=== PATIENT | male | born 1965 | race Two or more races ===

== ENCOUNTER 2019-10-27 18:22 | Inpatient (IN) ==
[2019-10-27 18:42] VITALS: BMI 23.6
[2019-10-27] MEDS ORDERED: NS 1000 ML 1,000 ML IV ONE (19:40)
[2019-10-27] MEDS ORDERED: ZOFRAN INJ 4 MG VIAL IVP ONE (19:40)
--- NOTE | 2019-10-27 19:40 | DR.GENAD ---
HPI Time Seen Time Seen by Provider: 10/27/19 19:36 PCP Primary Care Physician: DR. KAYLIN PATRICK HPI Comment HPI Comment: Interview in Slovak: 4 days fever, malaise, back pain, mild non- productive cough, denies SHOB. O2Sat 90% on 2L NC. Also c/o nausea and appetite loss, no vomiting/diarrhea/constipation or dysuria. Complaint/Symptoms Chief Complaint:: PT AMBULATORY IN ED WITH C/O FEVER, CHILLS AND BODY ACHES X 4 DAYS. COVID-19 Coronavirus risk:travel/contact w/high risk person: No Has patient experienced Coronavirus symptoms: Yes Coronavirus symptoms experienced: Fever, Coughing and Shortness of Breath Source History Provided: Patient Mode of Arrival Mode of Arrival: Ambulatory Timing Onset of Chief Complaint: 10/23/19 PMH PMH Past Medical History: Yes Past Medical History: Diabetes Past Surgical History: No Surgical History: No History Family History History of Family Medical Conditions: Yes Family Medical History: Diabetes Mellitus Social History Does patient currently use any type of tobacco product: No Have you used tobacco products in the last 12 months: No Type of Tobacco Use: None Does any household member use tobacco: No Alcohol Use: Occasionally Do you use any recreational Drugs:: No Lives With: Significant Other Lives Where: Home Travel Risk Coronavirus risk:travel/contact w/high risk person: No Has patient experienced Coronavirus symptoms: Yes Coronavirus symptoms experienced: Fever, Coughing and Shortness of Breath Infectious screening In the last 2 months have you had wt loss of >10#?: NO Have you had fever, night sweats or hemotysis?: Yes Have you traveled outside the country in the last 6 months?: No Isolation: Droplet ROS Review of Systems Constitutional: See HPI Eyes: No Symptoms Reported ENTM: No Symptoms Reported Respiratoy: See HPI Cardiovascular: No Symptoms Reported Gastrointestinal/Abdominal: See HPI Genitourinary: No Symptoms Reported Neurological: No Symptoms Reported Musculoskeletal: No Symptoms Reported Integumentary: No Symptoms Reported Hematologic/Lymphatic: No Symptoms Reported Endocrine: No Symptoms Reported Psychiatric: No Symptoms Reported All Other Systems: Reviewed and Negative PE Vital Signs Vitals: Temperature 101 F Pulse Rate [Left] 97 Pulse Rate 90 Respiratory Rate 28 Blood Pressure [Right Arm] 108/68 Blood Pressure 122/69 O2 Sat by Pulse Oximetry 87 General Limitations: No Limitations General Appearance: Alert and In No Apparent Distress Head Head Exam: Normal Inspection Eyes Eye exam: Normal Appearance ENT ENT Exam: Mucous Membranes Dry External Ear Exam: Normal External Inspection TM/Canal Exam: Bilateral: Normal Nose Exam: Normal Nose Exam Mouth Exam: Normal Inspection Throat Exam: Normal Inspection Neck Neck Exam: Normal Inspection Chest Chest Inspection: Normal Inspection Respiratory Respiratory Exam: Normal Lung Sounds Bilat Respiratory Exam: Bilateral: Clear to Auscultation Cardiovascular Cardiovascular Exam: Regular Rate and Normal Rhythm Abdominal Exam Abdominal Exam: Normal Inspection, Normal Bowel Sounds, Soft and Tenderness (Epigastric); negative Distention, Guarding, Rebound and Rigidity Extremities Extremities Exam: Normal Inspection and Full ROM Back Back Exam: Normal Inspection Neurologic Neurological Exam: Alert and Oriented X3 Psychiatric Psychiatric Exam: Normal Affect and Normal Mood Skin Skin Exam: Warm, Dry, Intact and Normal Color COURSE Treatment Treatment: Symptoms concerning for viral infection, potentially Covid, cannot r/o bacterial pneumonia or other etiology. Currently stable O2 Sats on 2L/min. Patient endorsed to Dr. Paulino for follow up of labs, further management, and disposition. ROR Labs Reviewed Result Diagrams: 10/31/19 04:33 10/31/19 04:33 Laboratory: WBC 15.9 X10^3/uL (3.6-10.0) H 10/27/19 19:53 RBC 4.07 X10^6/uL (4.7-6.0) L 10/27/19 19:53 Hgb 11.6 g/dL (13.5-18.0) L 10/27/19 19:53 Hct 34.3 % (42.0-54.0) L 10/27/19 19:53 MCV 84.3 fL (80.0-100.0) 10/27/19 19:53 MCH 28.6 pg (27.0-34.0) 10/27/19 19:53 MCHC 33.9 g/dL (33.0-35.0) 10/27/19 19:53 RDW 13.6 % (11.6-16.5) 10/27/19 19:53 Plt Count 290 X10^3/uL (150.0-450.0) 10/27/19 19:53 Plt Count Comment Adequate (ADEQUATE) 10/27/19 19:53 MPV 7.4 fL (7.4-11.0) 10/27/19 19:53 Neut % (Auto) 92.4 % (42.0-75.0) H 10/27/19 19:53 Lymph % (Auto) 3.7 % (21.0-51.0) L 10/27/19 19:53 [place] % (Auto) 3.8 % (0.0-13.0) 10/27/19 19:53 Eos % (Auto) 0.0 % (0.9-2.9) L 10/27/19 19:53 Baso % (Auto) 0.1 % (0.2-1.0) L 10/27/19 19:53 Neut # (Auto) 14.7 x10^3/uL (2.2-4.8) H 10/27/19 19:53 Lymph # (Auto) 0.6 X10^3/uL (1.3-2.9) L 10/27/19 19:53 [place] # (Auto) 0.6 x10^3/uL (0.3-0.8) 10/27/19 19:53 Eos # (Auto) 0.0 x10^3/uL (0.0-0.2) 10/27/19 19:53 Baso # (Auto) 0.0 X10^3/uL (0.0-0.1) 10/27/19 19:53 Absolute Nucleated RBC 0.0 /100WBC 10/27/19 19:53 Total Counted 100 10/27/19 19:53 Neutrophils % (Manual) 92 % (39-76) H 10/27/19 19:53 Band Neutrophils % 1 % (0-10) 10/27/19 19:53 Lymphocytes % (Manual) 4 % (13-43) L 10/27/19 19:53 Monocytes % (Manual) 3 % (4-9) L 10/27/19 19:53 Plt Morphology Comment Normal (NORMAL) 10/27/19 19:53 RBC Morphology Normal (NORMAL) 10/27/19 19:53 Sample Site [facility] 10/27/19 21:23 ABG pH 7.470 (7.35-7.45) H 10/27/19 21:23 ABG pCO2 35.0 mmHg (35.0-45.0) 06/05/20 21:23 ABG pO2 61.0 mmHg (80.0-100.0) L 10/27/19 21:23 ABG HCO3 25.5 mmol/L (22-26) 10/27/19 21:23 ABG O2 Saturation 93.0 % (90-100) 10/27/19 21:23 ABG Base Excess 2.0 mmol/L (-2.0-2.0) 10/27/19 21:23 Titi Test Na 10/27/19 21:23 A-a Gradient 180.0 mmHg 10/27/19 21:23 FiO2 40.0 10/27/19 21:23 Blood Gas Comments Flakita abg well-mtf 10/27/19 21:23 Sodium 126 mmol/L (136-145) L 10/27/19 19:53 Corrected Sodium 130 mmol/L (136-145) L 10/27/19 19:53 Potassium 4.1 mmol/L (3.5-5.1) 10/27/19 19:53 Chloride 92 mmol/L (98-107) L 10/27/19 19:53 Carbon Dioxide 26.9 mmol/L (21-32) 10/27/19 19:53 BUN 13 mg/dL (7-18) 10/27/19 19:53 Creatinine 1.05 mg/dL (0.70-1.30) 10/27/19 19:53 Est GFR (MDRD) Af Amer > 60 (>60) 10/27/19 19:53 Est GFR (MDRD) Non-Af > 60 (>60) 10/27/19 19:53 Glucose 283 mg/dL (65-99) H 10/27/19 19:53 Calcium 8.6 mg/dL (8.5-10.1) 10/27/19 19:53 Corrected Calcium 9.9 mg/dL (8.5-10.1) 10/27/19 19:53 Total Bilirubin 0.40 mg/dL (0.2-1.0) 10/27/19 19:53 AST 31 Units/L (15-37) 10/27/19 19:53 ALT 23 Units/L (12-78) 10/27/19 19:53 Alkaline Phosphatase 118 Units/L (46-116) H 10/27/19 19:53 Total Protein 7.7 g/dL (6.4-8.2) 10/27/19 19:53 Albumin 2.4 g/dL (3.4-5.0) L 10/27/19 19:53 Globulin 5.3 g/dL (2.5-4.5) H 10/27/19 19:53 Albumin/Globulin Ratio 0.5 Ratio (1.1-2.1) L 10/27/19 19:53 Influenza Type A Ag Negative-presumptive (NEGATIVE) 10/27/19 20:23 Influenza Type B Ag Negative-presumptive (NEGATIVE) 10/27/19 20:23 Mycoplasma pneumon IgG Negative (NEGATIVE) 10/27/19 19:53 SARS-CoV-2 (PCR) Positive (NEGATIVE) A 10/27/19 22:45 Miscellaneous Test Cancelled 10/27/19 19:05 EKG [place]: Normal Rhythm: NSR Block: None Hypertrophy: None ST: Normal Opioid Opioid Risk Tool Age ([place] box if 16-45): No History of Preadolescent Sexual Abuse: No Total: 0 Total Score Risk Category: Low Risk Copyright: Cooper MEADE predicting aberrant behaviors Diagnosis Discharge Problem: Multifocal pneumonia, COVID-19 virus IgG antibody test result unknown, Type 2 diabetes mellitus, Hyponatremia Instructions Forms: Excuse From Work Precautions for COVID19 Patient Portal Social Distancing
[2019-10-27 20:02] LABS: BASOPHILS % (AUTO) 0.1 % (0.2-1.0); HEMATOCRIT 34.3 % (42.0-54.0); HEMOGLOBIN 11.6 g/dL (13.5-18.0); LYMPHOCYTES # (AUTO) 0.6 X10^3/uL (1.3-2.9); LYMPHOCYTES % (AUTO) 3.7 % (21.0-51.0); MEAN CORPUSCULAR HEMOGLOBIN 28.6 pg (27.0-34.0); MEAN CORPUSCULAR HGB CONC 33.9 g/dL (33.0-35.0); MEAN CORPUSCULAR VOLUME 84.3 fL (80.0-100.0); MEAN PLATELET VOLUME 7.4 fL (7.4-11.0); MONOCYTES # (AUTO) 0.6 x10^3/uL (0.3-0.8); MONOCYTES % (AUTO) 3.8 % (0.0-13.0); NEUTROPHILS # (AUTO) 14.7 x10^3/uL (2.2-4.8); NEUTROPHILS % (AUTO) 92.4 % (42.0-75.0); PLATELET COUNT 290 X10^3/uL (150.0-450.0); RED BLOOD COUNT 4.07 X10^6/uL (4.7-6.0); RED CELL DISTRIBUTION WIDTH 13.6 % (11.6-16.5); WHITE BLOOD COUNT 15.9 X10^3/uL (3.6-10.0)
[2019-10-27] MEDS ORDERED: NS 1000 ML 1,000 ML ONE ×2 (20:09→22:07)
[2019-10-27] MEDS ORDERED: ZOFRAN INJ 4 MG VIAL ONE (20:09)
[2019-10-27 20:12] LABS: BAND NEUTROPHILS % 1 % (0-10); PLATELET MORPHOLOGY COMMENT NORMAL (NORMAL)
[2019-10-27 20:13] LABS: ALANINE AMINOTRANSFERASE 23 Units/L (12-78); ALBUMIN 2.4 g/dL (3.4-5.0); ALKALINE PHOSPHATASE 118 Units/L (46-116); ASPARTATE AMINO TRANSFERASE 31 Units/L (15-37); BLOOD UREA NITROGEN 13 mg/dL (7-18); CALCIUM 8.6 mg/dL (8.5-10.1); CARBON DIOXIDE 26.9 mmol/L (21-32); CHLORIDE 92 mmol/L (98-107); COR CA(FOR HYPOALB) 9.9 mg/dL (8.5-10.1); COR NA(FOR HYPERGLY) 130 mmol/L (136-145); CREATININE 1.05 mg/dL (0.70-1.30); SODIUM 126 mmol/L (136-145); TOTAL PROTEIN 7.7 g/dL (6.4-8.2); eGFR NON BLACK RACES > 60 (>60)
--- NOTE | 2019-10-27 20:24 | RAD ---
STUDY: CHEST, 1 VIEWCOMPARISON: NoneHISTORY: C/O FEVER, CHILLS AND BODY ACHES X 4 DAYS.FINDINGS:Multifocal alveolar airspace disease is seen in the left mid and left lower lung zone as well as the right lower lung zone. No pleural effusion or pneumothorax is identified. Heart size is normal. Mediastinum is unremarkable. The trachea is midline.IMPRESSION:Multifocal alveolar airspace disease is seen in the left and right lung as described above. Given the patient's history of fever and chills, this could represent acute airspace disease such as infection/multifocal lobar pneumonia or viral pneumonia. Please note that there are no prior studies available for comparison. Therefore I would consider chronic airspace disease in the differential diagnosis. Correlation with laboratory viral testing may be helpful and obtained if clinically indicated.Electronically signed by: Maximiliano Arriaza (Oct 27, 2019 20:22:58)
[2019-10-27 20:31] LABS: MYCOPLASMA PNEUMONIAE IGM AB NEGATIVE (NEGATIVE)
[2019-10-27 21:28] LABS: ABG HCO3 25.5 mmol/L (22-26)
[2019-10-27] MEDS ORDERED: ROCEPHIN VIAL 1 GRAM 1 G in NS 100 ML IV + SPIKE MINIBAG* 100 ML IV ONE (21:53)
[2019-10-27] MEDS ORDERED: NS 100 ML IV + SPIKE MINIBAG* 100 ML IV ONE (22:07)
[2019-10-27] MEDS ORDERED: ROCEPHIN VIAL 1 GRAM ONE (22:08)
[2019-10-27] MEDS: NS 1000 ML 1,000 ML IV SCH (22:19)
[2019-10-27] MEDS ORDERED: TYLENOL 325 MG TAB PO ONE ×2 (22:26→22:27)
[2019-10-27] MEDS ORDERED: VITAMIN D (1.25MG) PO SCH (23:15)
[2019-10-27] MEDS ORDERED: THIAMINE HCL INJ IM SCH (23:45)
[2019-10-27] MEDS ORDERED: NS 1000 ML 1,000 ML IV SCH (23:45)
[2019-10-28] MEDS: ASCORBIC ACID INJ MULTI-DOSE VIAL IM SCH ×2 (02:29→05:03)
[2019-10-28] MEDS: PLAQUENIL PO SCH ×2 (02:31→05:03)
[2019-10-28] MEDS: ZINC SULFATE PO SCH ×2 (02:31→08:55)
[2019-10-28] MEDS: NS 1000 ML 1,000 ML IV SCH ×3 (05:03→21:00)
[2019-10-28 05:33] LABS: BASOPHILS % (AUTO) 0.1 % (0.2-1.0); EOSINOPHILS % (AUTO) 0.1 % (0.9-2.9); HEMATOCRIT 35.1 % (42.0-54.0); HEMOGLOBIN 11.8 g/dL (13.5-18.0); LYMPHOCYTES % (AUTO) 5.6 % (21.0-51.0); MEAN CORPUSCULAR HEMOGLOBIN 28.7 pg (27.0-34.0); MEAN CORPUSCULAR HGB CONC 33.7 g/dL (33.0-35.0); MEAN CORPUSCULAR VOLUME 85.3 fL (80.0-100.0); MEAN PLATELET VOLUME 8.8 fL (7.4-11.0); MONOCYTES # (AUTO) 0.6 x10^3/uL (0.3-0.8); MONOCYTES % (AUTO) 3.2 % (0.0-13.0); PLATELET COUNT 290 X10^3/uL (150.0-450.0); RED BLOOD COUNT 4.11 X10^6/uL (4.7-6.0); RED CELL DISTRIBUTION WIDTH 13.6 % (11.6-16.5); WHITE BLOOD COUNT 18.7 X10^3/uL (3.6-10.0)
[2019-10-28 05:45] LABS: ALANINE AMINOTRANSFERASE 42 Units/L (12-78); ALBUMIN 2.1 g/dL (3.4-5.0); ALKALINE PHOSPHATASE 120 Units/L (46-116); ASPARTATE AMINO TRANSFERASE 76 Units/L (15-37); BLOOD UREA NITROGEN 10 mg/dL (7-18); CALCIUM 8.1 mg/dL (8.5-10.1); CARBON DIOXIDE 24.4 mmol/L (21-32); CHLORIDE 98 mmol/L (98-107); COR CA(FOR HYPOALB) 9.6 mg/dL (8.5-10.1); COR NA(FOR HYPERGLY) 131 mmol/L (136-145); CREATININE 0.86 mg/dL (0.70-1.30); SODIUM 130 mmol/L (136-145); TOTAL PROTEIN 7.4 g/dL (6.4-8.2); eGFR NON BLACK RACES > 60 (>60)
[2019-10-28] MEDS: TYLENOL 325 MG TAB PO PRN ×2 (05:51→17:49)
[2019-10-28 06:23] LABS: BAND NEUTROPHILS % 3 % (0-10)
[2019-10-28 06:24] LABS: PLATELET MORPHOLOGY COMMENT NORMAL (NORMAL)
[2019-10-28] MEDS ORDERED: VITAMIN A PO SCH (09:00)
--- NOTE | 2019-10-28 10:27 | DR.H&P ---
H&P History & Physical for Day of: H&P Date: 10/28/19 Chief Complaint Chief Complaint: Fevers, chills, shortness of breath Allergies Allergies Allergy/AdvReac Type Severity Reaction Status Date / Time No Known Drug Allergies Allergy Verified 10/27/19 18:43 History of Present Illness History of Present Illness: Pt is a 53 yo m pmhx DMT2, admitted for COVID pneumonia(positive on 10/27/19) and acute respiratory failure. He reports having fevers, chills, and shortness of breath that started 4 days ago. Associated symptoms of nausea/vomiting, body aches. Initial labs/imaging: Wbc 18.7, Hgb 11.8, Plt 290, Na 131, K 3.9, Cr 0.86, Gluc 146, ABG 7.47/35/61/25/93% on 40% venturi mask. CXR:IMPRESSION: Multifocal alveolar airspace disease is seen in the left and right lung as described above. Given the patient's history of fever and chills, this could represent acute airspace disease such as infection/multifocal lobar pneumonia or viral pneumonia. -Treatments include IVF@KVO, Vit C daily, Albuterol inh, change O2 to nasal cannula. Will get CRP today. Continue to monitor and follow up labs/imaging in the morning. Past Medical History Past Medical History: Diabetes Additional Medical History: Back Pain Past Surgical History Surgical History: No History Family History Family Medical History: Diabetes Mellitus Social History Does patient currently use any type of tobacco product: No Have you used tobacco products in the last 12 months: No Type of Tobacco Use: None Does any household member use tobacco: Yes Alcohol Use: Occasionally Drug Use: None Medications Home Medications: No Known Drug Allergies Allergy (Verified 10/27/19 18:43) CONTINUE taking the following medications aspirin 81 mg PO DAILY 10/27/19 [History] glipizide 20 mg PO BID 10/27/19 [History] metformin 850 mg PO TID 10/27/19 [History] Labs Result Diagrams: 10/28/19 04:45 10/28/19 04:45 Labs: Laboratory WBC 18.7 X10^3/uL (3.6-10.0) H 10/28/19 04:45 RBC 4.11 X10^6/uL (4.7-6.0) L 10/28/19 04:45 Hgb 11.8 g/dL (13.5-18.0) L 10/28/19 04:45 Hct 35.1 % (42.0-54.0) L 10/28/19 04:45 MCV 85.3 fL (80.0-100.0) 10/28/19 04:45 MCH 28.7 pg (27.0-34.0) 10/28/19 04:45 MCHC 33.7 g/dL (33.0-35.0) 10/28/19 04:45 RDW 13.6 % (11.6-16.5) 10/28/19 04:45 Plt Count 290 X10^3/uL (150.0-450.0) 10/28/19 04:45 Plt Count Comment Adequate (ADEQUATE) 10/28/19 04:45 MPV 8.8 fL (7.4-11.0) 10/28/19 04:45 Neut % (Auto) 91.0 % (42.0-75.0) H 10/28/19 04:45 Lymph % (Auto) 5.6 % (21.0-51.0) L 10/28/19 04:45 [place] % (Auto) 3.2 % (0.0-13.0) 10/28/19 04:45 Eos % (Auto) 0.1 % (0.9-2.9) L 10/28/19 04:45 Baso % (Auto) 0.1 % (0.2-1.0) L 10/28/19 04:45 Neut # (Auto) 17.0 x10^3/uL (2.2-4.8) H 10/28/19 04:45 Lymph # (Auto) 1.0 X10^3/uL (1.3-2.9) L 10/28/19 04:45 [place] # (Auto) 0.6 x10^3/uL (0.3-0.8) 10/28/19 04:45 Eos # (Auto) 0.0 x10^3/uL (0.0-0.2) 10/28/19 04:45 Baso # (Auto) 0.0 X10^3/uL (0.0-0.1) 10/28/19 04:45 Absolute Nucleated RBC 0.1 /100WBC 10/28/19 04:45 Total Counted 100 10/28/19 04:45 Neutrophils % (Manual) 82 % (39-76) H 10/28/19 04:45 Band Neutrophils % 3 % (0-10) 10/28/19 04:45 Lymphocytes % (Manual) 10 % (13-43) L 10/28/19 04:45 Monocytes % (Manual) 4 % (4-9) 10/28/19 04:45 Eosinophils % (Manual) 1 % (0-6) 10/28/19 04:45 Plt Morphology Comment Normal (NORMAL) 10/28/19 04:45 RBC Morphology Normal (NORMAL) 10/28/19 04:45 Sample Site Rb 10/27/19 21:23 ABG pH 7.470 (7.35-7.45) H 10/27/19 21:23 ABG pCO2 35.0 mmHg (35.0-45.0) 10/27/19 21:23 ABG pO2 61.0 mmHg (80.0-100.0) L 10/27/19 21:23 ABG HCO3 25.5 mmol/L (22-26) 10/27/19 21:23 ABG O2 Saturation 93.0 % (90-100) 10/27/19 21:23 ABG Base Excess 2.0 mmol/L (-2.0-2.0) 10/27/19 21:23 Titi Test Na 10/27/19 21:23 A-a Gradient 180.0 mmHg 10/27/19 21:23 FiO2 40.0 10/27/19 21:23 Blood Gas Comments Flakita abg well-mtf 10/27/19 21:23 Sodium 130 mmol/L (136-145) L 10/28/19 04:45 Corrected Sodium 131 mmol/L (136-145) L 10/28/19 04:45 Potassium 3.9 mmol/L (3.5-5.1) 10/28/19 04:45 Chloride 98 mmol/L (98-107) 10/28/19 04:45 Carbon Dioxide 24.4 mmol/L (21-32) 10/28/19 04:45 BUN 10 mg/dL (7-18) 10/28/19 04:45 Creatinine 0.86 mg/dL (0.70-1.30) 10/28/19 04:45 Est GFR (MDRD) Af Amer > 60 (>60) 10/28/19 04:45 Est GFR (MDRD) Non-Af > 60 (>60) 10/28/19 04:45 Glucose 146 mg/dL (65-99) H 10/28/19 04:45 Calcium 8.1 mg/dL (8.5-10.1) L 10/28/19 04:45 Corrected Calcium 9.6 mg/dL (8.5-10.1) 10/28/19 04:45 Total Bilirubin 0.50 mg/dL (0.2-1.0) 10/28/19 04:45 AST 76 Units/L (15-37) H 10/28/19 04:45 ALT 42 Units/L (12-78) 10/28/19 04:45 Alkaline Phosphatase 120 Units/L (46-116) H 10/28/19 04:45 Total Protein 7.4 g/dL (6.4-8.2) 10/28/19 04:45 Albumin 2.1 g/dL (3.4-5.0) L 10/28/19 04:45 Globulin 5.3 g/dL (2.5-4.5) H 10/28/19 04:45 Albumin/Globulin Ratio 0.4 Ratio (1.1-2.1) L 10/28/19 04:45 Influenza Type A Ag Negative-presumptive (NEGATIVE) 10/27/19 20:23 Influenza Type B Ag Negative-presumptive (NEGATIVE) 10/27/19 20:23 Mycoplasma pneumon IgG Negative (NEGATIVE) 10/27/19 19:53 SARS-CoV-2 (PCR) Positive (NEGATIVE) A 10/27/19 22:45 Miscellaneous Test Cancelled 10/27/19 19:05 Review of Systems Constitutional: Fever, Chills and Weakness Eyes: No Symptoms Reported ENT: No Symptoms Reported Respiratory: Cough, Shortness of Breath, Pleuritic Pain and Wheezing Cardiovascular: No Symptoms Reported Gastrointestinal: Nausea and Vomiting; denies Diarrhea and Constipation Genitourinary: No Symptoms Reported Musculoskeletal: No Symptoms Reported Skin: No Symptoms Reported Neurological: No Symptoms Reported Physical Exam Vital Signs: Temperature 99.1 F Pulse Rate [Left] 97 Pulse Rate 82 Respiratory Rate 24 Blood Pressure [Right Arm] 108/68 Blood Pressure 115/61 O2 Sat by Pulse Oximetry 100 Oriented: Normal Eyes: Normal Ear: Normal Nose: Normal Respiratory: Rales Throughout and Wheezes Throughout Cardiovascular: Normal : Normal Auscultation: Bowel Sounds: Normal Palpation: Normal Tenderness: Normal Skin: Normal Musculoskeletal: Normal Psychiatric: Normal Speech Pattern: Clear Assessment/Plan (1) Pneumonia due to COVID-19 virus: Status: Acute Plan: Pneumonia protocol (2) Acute respiratory failure: Status: Acute Plan: Supplemental O2 (3) Diabetes mellitus, type 2: Status: Chronic Plan: SSI, resume home meds (4) Hyponatremia: Status: Acute Review H&P Reviewed: Yes Patient was examined?: Yes
[2019-10-28] MEDS ORDERED: DUONEB 0.5 MG/3 MG (3 mL) NEB SCH (11:00)
[2019-10-28] MEDS: LOVENOX INJ 40 MG SYR SC SCH (11:58)
[2019-10-28] MEDS: VITAMIN C PO SCH (12:00)
[2019-10-28] MEDS: VENTOLIN or PROAIR HFA IN PRN ×3 (12:20→20:10)
[2019-10-28] MEDS: HumuLIN R SUBCUT PRN ×3 (12:26→20:59)
[2019-10-28] MEDS ORDERED: VENTOLIN or PROAIR HFA IN PRN (13:00)
[2019-10-28] MEDS: GLUCOPHAGE PO SCH (17:28)
[2019-10-28] MEDS: ASPIRIN 81 MG CHEWTAB PO SCH (20:19)
[2019-10-28] MEDS: SNACK - Diabetic Appropriate PO SCH (20:20)
[2019-10-29] MEDS: TYLENOL 325 MG TAB PO PRN (02:46)
[2019-10-29 05:24] LABS: BASOPHILS % (AUTO) 0.1 % (0.2-1.0); EOSINOPHILS % (AUTO) 0.1 % (0.9-2.9); HEMATOCRIT 32.2 % (42.0-54.0); LYMPHOCYTES # (AUTO) 0.8 X10^3/uL (1.3-2.9); LYMPHOCYTES % (AUTO) 7.2 % (21.0-51.0); MEAN CORPUSCULAR HEMOGLOBIN 29.3 pg (27.0-34.0); MEAN CORPUSCULAR HGB CONC 34.1 g/dL (33.0-35.0); MEAN PLATELET VOLUME 8.5 fL (7.4-11.0); MONOCYTES # (AUTO) 0.6 x10^3/uL (0.3-0.8); MONOCYTES % (AUTO) 5.6 % (0.0-13.0); NEUTROPHILS # (AUTO) 9.2 x10^3/uL (2.2-4.8); PLATELET COUNT 314 X10^3/uL (150.0-450.0); RED BLOOD COUNT 3.75 X10^6/uL (4.7-6.0); RED CELL DISTRIBUTION WIDTH 13.4 % (11.6-16.5); WHITE BLOOD COUNT 10.5 X10^3/uL (3.6-10.0)
[2019-10-29 05:29] LABS: ABG HCO3 27.6 mmol/L (22-26)
[2019-10-29 05:31] LABS: ALANINE AMINOTRANSFERASE 121 Units/L (12-78); ALBUMIN 1.8 g/dL (3.4-5.0); ALKALINE PHOSPHATASE 159 Units/L (46-116); ASPARTATE AMINO TRANSFERASE 167 Units/L (15-37); BLOOD UREA NITROGEN 10 mg/dL (7-18); CALCIUM 8.1 mg/dL (8.5-10.1); CARBON DIOXIDE 28.1 mmol/L (21-32); CHLORIDE 98 mmol/L (98-107); COR CA(FOR HYPOALB) 9.9 mg/dL (8.5-10.1); COR NA(FOR HYPERGLY) 133 mmol/L (136-145); CREATININE 0.83 mg/dL (0.70-1.30); SODIUM 131 mmol/L (136-145); TOTAL PROTEIN 6.7 g/dL (6.4-8.2); eGFR NON BLACK RACES > 60 (>60)
[2019-10-29] MEDS: NS 1000 ML 1,000 ML IV SCH ×2 (05:58→14:00)
[2019-10-29] MEDS: GLUCOPHAGE PO SCH ×2 (09:00→16:42)
[2019-10-29] MEDS ORDERED: VITAMIN A PO SCH (09:00)
[2019-10-29] MEDS ORDERED: VITAMIN D3 25 mcg (1,000 UNITS) PO SCH (09:00)
[2019-10-29] MEDS: ASPIRIN 81 MG CHEWTAB PO SCH (09:15)
[2019-10-29] MEDS: LOVENOX INJ 40 MG SYR SC SCH (09:16)
[2019-10-29] MEDS: VITAMIN C PO SCH (09:18)
[2019-10-29] MEDS: VENTOLIN or PROAIR HFA IN PRN ×3 (10:25→16:35)
--- NOTE | 2019-10-29 10:34 | PCM.PROG ---
Progress Note Progress Note for Day of Date of Exam: 10/29/19 Subjective Subjective: Pt is a 53 yo m pmhx DMT2, admitted for COVID pneumonia(positive on 10/27/19) and acute respiratory failure. This morning he has had some improvement but reports a lot of coughing. Will give Tessalon and Cheratussin syrup to help. He did have fever overnight of 100.5F. Labs/imaging: Wbc 10.5, Hgb 11, Plt 314, Na 133, K 3.6, Cr 0.83, Gluc 203, AST 167, ALT 121, ALP 159, CRP 308, ABG 7.48/37/55/27/90% on 2L O2, will increase to 3L today. CXR this morning pending. Pt's liver enzymes mildly elevated, will continue to trend, switch Tylenol to ibuprofen. Will start azithromycin and prednisone today. Treatments include IVF@KVO, Vit C daily, Albuterol inh, Continue to monitor and follow up lab s/imaging in the morning. Past Medical Family Social History Past Med/Fam/Surg Hx: No changes since H&P Allergies: Allergies No Known Drug Allergies Allergy (Verified 10/27/19 18:43) Review of Systems ROS: No change since H&P Vital Signs and I&O's Vital Signs: Temperature 98.7 F Pulse Rate [Left] 97 Pulse Rate 90 Respiratory Rate 24 Blood Pressure [Right Arm] 108/68 Blood Pressure 114/70 O2 Sat by Pulse Oximetry 92 Intake and Output: Intake & Output 10/26/19 10/27/19 10/28/19 10/29/19 23:59 23:59 23:59 23:59 Intake Total 1938 Balance 1938 Physical Exam Oriented: Normal Eyes: Normal Ear: Normal Nose: Normal Respiratory: Rales Cardiovascular: Normal : Normal Auscultation: Bowel Sounds: Normal Tenderness: Normal Skin: Normal Musculoskeletal: Normal Psychiatric: Normal Speech Pattern: Clear and Appropriate Laboratory and Diagnostics Result Diagrams: 10/29/19 04:48 10/29/19 04:48 Labs: Laboratory WBC 10.5 X10^3/uL (3.6-10.0) H D 10/29/19 04:48 RBC 3.75 X10^6/uL (4.7-6.0) L 10/29/19 04:48 Hgb 11.0 g/dL (13.5-18.0) L 10/29/19 04:48 Hct 32.2 % (42.0-54.0) L 10/29/19 04:48 MCV 86.0 fL (80.0-100.0) 10/29/19 04:48 MCH 29.3 pg (27.0-34.0) 10/29/19 04:48 MCHC 34.1 g/dL (33.0-35.0) 10/29/19 04:48 RDW 13.4 % (11.6-16.5) 10/29/19 04:48 Plt Count 314 X10^3/uL (150.0-450.0) 10/29/19 04:48 Plt Count Comment Adequate (ADEQUATE) 10/28/19 04:45 MPV 8.5 fL (7.4-11.0) 10/29/19 04:48 Neut % (Auto) 87.0 % (42.0-75.0) H 10/29/19 04:48 Lymph % (Auto) 7.2 % (21.0-51.0) L 10/29/19 04:48 [place] % (Auto) 5.6 % (0.0-13.0) 10/29/19 04:48 Eos % (Auto) 0.1 % (0.9-2.9) L 10/29/19 04:48 Baso % (Auto) 0.1 % (0.2-1.0) L 10/29/19 04:48 Neut # (Auto) 9.2 x10^3/uL (2.2-4.8) H 10/29/19 04:48 Lymph # (Auto) 0.8 X10^3/uL (1.3-2.9) L 10/29/19 04:48 [place] # (Auto) 0.6 x10^3/uL (0.3-0.8) 10/29/19 04:48 Eos # (Auto) 0.0 x10^3/uL (0.0-0.2) 10/29/19 04:48 Baso # (Auto) 0.0 X10^3/uL (0.0-0.1) 10/29/19 04:48 Absolute Nucleated RBC 0.0 /100WBC 10/29/19 04:48 Total Counted 100 10/28/19 04:45 Neutrophils % (Manual) 82 % (39-76) H 10/28/19 04:45 Band Neutrophils % 3 % (0-10) 10/28/19 04:45 Lymphocytes % (Manual) 10 % (13-43) L 10/28/19 04:45 Monocytes % (Manual) 4 % (4-9) 10/28/19 04:45 Eosinophils % (Manual) 1 % (0-6) 10/28/19 04:45 Plt Morphology Comment Normal (NORMAL) 10/28/19 04:45 RBC Morphology Normal (NORMAL) 10/28/19 04:45 Sample Site Lbra 10/29/19 05:24 ABG pH 7.480 (7.35-7.45) H 10/29/19 05:24 ABG pCO2 37.0 mmHg (35.0-45.0) 10/29/19 05:24 ABG pO2 55.0 mmHg (80.0-100.0) L 10/29/19 05:24 ABG HCO3 27.6 mmol/L (22-26) H 10/29/19 05:24 ABG O2 Saturation 90.0 % (90-100) 10/29/19 05:24 ABG Base Excess 4.0 mmol/L (-2.0-2.0) H 10/29/19 05:24 Titi Test Na 10/29/19 05:24 A-a Gradient 98.0 mmHg 10/29/19 05:24 FiO2 28.0 10/29/19 05:24 Blood Gas Comments [place] abg well-mtf 10/29/19 05:24 Sodium 131 mmol/L (136-145) L 10/29/19 04:48 Corrected Sodium 133 mmol/L (136-145) L 10/29/19 04:48 Potassium 3.6 mmol/L (3.5-5.1) 10/29/19 04:48 Chloride 98 mmol/L (98-107) 10/29/19 04:48 Carbon Dioxide 28.1 mmol/L (21-32) 10/29/19 04:48 BUN 10 mg/dL (7-18) 10/29/19 04:48 Creatinine 0.83 mg/dL (0.70-1.30) 10/29/19 04:48 Est GFR (MDRD) Af Amer > 60 (>60) 10/29/19 04:48 Est GFR (MDRD) Non-Af > 60 (>60) 10/29/19 04:48 Glucose 203 mg/dL (65-99) H 10/29/19 04:48 Calcium 8.1 mg/dL (8.5-10.1) L 10/29/19 04:48 Corrected Calcium 9.9 mg/dL (8.5-10.1) 10/29/19 04:48 Total Bilirubin 0.30 mg/dL (0.2-1.0) 10/29/19 04:48 AST 167 Units/L (15-37) H 10/29/19 04:48 ALT 121 Units/L (12-78) H 10/29/19 04:48 Alkaline Phosphatase 159 Units/L (46-116) H 10/29/19 04:48 C-Reactive Protein 308.00 mg/L (0-3.0) H 10/28/19 04:45 Total Protein 6.7 g/dL (6.4-8.2) 10/29/19 04:48 Albumin 1.8 g/dL (3.4-5.0) L 10/29/19 04:48 Globulin 4.9 g/dL (2.5-4.5) H 10/29/19 04:48 Albumin/Globulin Ratio 0.4 Ratio (1.1-2.1) L 10/29/19 04:48 Influenza Type A Ag Negative-presumptive (NEGATIVE) 10/27/19 20:23 Influenza Type B Ag Negative-presumptive (NEGATIVE) 10/27/19 20:23 Mycoplasma pneumon IgG Negative (NEGATIVE) 10/27/19 19:53 SARS-CoV-2 (PCR) Positive (NEGATIVE) A 10/27/19 22:45 Miscellaneous Test Cancelled 10/27/19 19:05 Plan (1) Pneumonia due to COVID-19 virus: Status: Acute Plan: Pneumonia protocol (2) Acute respiratory failure: Status: Acute Plan: Supplemental O2 (3) Diabetes mellitus, type 2: Status: Chronic Plan: SSI, resume home meds (4) Hyponatremia: Status: Acute (5) Elevated liver enzymes: Status: Acute
[2019-10-29] MEDS ORDERED: MOTRIN TAB 400 MG PO PRN (10:53)
[2019-10-29] MEDS: ZITHROMAX INJ 500 MG VIAL 250 MG in NS 250 ML IV 250 ML IV SCH (12:00)
[2019-10-29] MEDS: HumuLIN R SUBCUT PRN ×3 (12:00→20:52)
[2019-10-29] MEDS: PREDNISONE TAB 20 MG PO SCH (12:00)
--- NOTE | 2019-10-29 15:30 | RAD ---
HISTORYPNEUMONIASTUDYCHEST, 1 VIEWCOMPARISONJune 2019FINDINGSThe trachea is midline. The cardiac silhouette is unremarkable . The lungs demonstrates worsening airspace disease throughout both lungs compared to prior. The bony thorax is unremarkable.IMPRESSIONWorsening multifocal pneumonia.Electronically signed by: MARCIO VILLA (Oct 29, 2019 15:28:39)
[2019-10-29] MEDS: SNACK - Diabetic Appropriate PO SCH (20:53)
[2019-10-30] MEDS: HumuLIN R SUBCUT PRN ×4 (05:25→21:05)
[2019-10-30] MEDS: NS 1000 ML 1,000 ML IV SCH ×4 (05:25→22:38)
[2019-10-30 05:28] LABS: ABG BASE EXCESS 1.1 mmol/L (-2.0-2.0); ABG HCO3 25.1 mmol/L (22-26)
[2019-10-30 05:29] LABS: ABG ALLEN TEST POS
[2019-10-30 05:50] LABS: BASOPHILS % (AUTO) 0.1 % (0.2-1.0); HEMATOCRIT 32.5 % (42.0-54.0); HEMOGLOBIN 11.2 g/dL (13.5-18.0); LYMPHOCYTES # (AUTO) 0.8 X10^3/uL (1.3-2.9); LYMPHOCYTES % (AUTO) 9.1 % (21.0-51.0); MEAN CORPUSCULAR HEMOGLOBIN 29.3 pg (27.0-34.0); MEAN CORPUSCULAR HGB CONC 34.5 g/dL (33.0-35.0); MEAN CORPUSCULAR VOLUME 84.9 fL (80.0-100.0); MEAN PLATELET VOLUME 8.9 fL (7.4-11.0); MONOCYTES # (AUTO) 0.7 x10^3/uL (0.3-0.8); MONOCYTES % (AUTO) 7.7 % (0.0-13.0); NEUTROPHILS # (AUTO) 7.7 x10^3/uL (2.2-4.8); NEUTROPHILS % (AUTO) 83.1 % (42.0-75.0); PLATELET COUNT 362 X10^3/uL (150.0-450.0); RED BLOOD COUNT 3.83 X10^6/uL (4.7-6.0); RED CELL DISTRIBUTION WIDTH 13.8 % (11.6-16.5); WHITE BLOOD COUNT 9.2 X10^3/uL (3.6-10.0)
[2019-10-30 06:03] LABS: ALANINE AMINOTRANSFERASE 100 Units/L (12-78); ALBUMIN 1.9 g/dL (3.4-5.0); ALKALINE PHOSPHATASE 161 Units/L (46-116); ASPARTATE AMINO TRANSFERASE 72 Units/L (15-37); BLOOD UREA NITROGEN 14 mg/dL (7-18); CALCIUM 8.2 mg/dL (8.5-10.1); CARBON DIOXIDE 24.5 mmol/L (21-32); CHLORIDE 96 mmol/L (98-107); COR CA(FOR HYPOALB) 9.9 mg/dL (8.5-10.1); COR NA(FOR HYPERGLY) 135 mmol/L (136-145); CREATININE 0.87 mg/dL (0.70-1.30); SODIUM 131 mmol/L (136-145); TOTAL PROTEIN 6.9 g/dL (6.4-8.2); eGFR NON BLACK RACES > 60 (>60)
[2019-10-30] MEDS: GLUCOPHAGE PO SCH ×2 (07:37→16:20)
--- NOTE | 2019-10-30 08:07 | W.DIS.FURT ---
Summary of Discharge Discharge Summary of Date Date of Exam: 10/30/19 Admission Date Date of Admission: 10/28/19 Admission Diagnosis Patient Problems (Updated 10/29/19 @ 10:54 by Sunday Barrientos) Elevated liver enzymes (Acute) R74.8 Acute respiratory failure (Acute) J96.00 Pneumonia due to COVID-19 virus (Acute) U07.1, J12.89 Diabetes mellitus, type 2 (Chronic) E11.9 Multifocal pneumonia (Acute) J18.9 COVID-19 virus IgG antibody test result unknown (Acute) Z01.84 Hyponatremia (Acute) E87.1 Hospital Course: Pt is a 53 yo m pmhx DMT2, admitted for COVID pneumonia(positive on 10/27/19) and acute respiratory failure. He was treated with azithromycin, prednisone, albuterol inh, and supplemental oxygen. On day of discharge he was afebrile x 24hours. Respiratory status significantly improved. Labs/imaging: Wbc 9.2, Hgb 11.2, Plt 362, Na 135, K 4.1, Cr 0.87, Gluc 282, ABG 7.4/37/60/25/92% on RA. Pt's liver enzymes were mildly elevated, now trending down after switching Tylenol to ibuprofen. Pt is in stable condition. Discharge with rx and instructions to complete azithromycin and prednisone course, use albuterol inh prn. F/u 10 days w/ pcp. Vital Signs: Vital Signs (72 hours) 10/27/19 18:37 10/27/19 19:15 10/27/19 19:30 Temperature 99.6 F Pulse Rate 109 H Pulse Rate [Left] 97 H 101 H Respiratory Rate 28 H Blood Pressure 104/54 O2 Sat by Pulse Oximetry 84 L 84 L 90 L 10/27/19 19:45 10/27/19 20:00 10/27/19 20:15 Temperature Pulse Rate Pulse Rate [Left] 93 H 94 H 95 H Respiratory Rate Blood Pressure O2 Sat by Pulse Oximetry 91 L 90 L 92 L 10/27/19 20:30 10/27/19 20:32 10/27/19 21:01 Temperature Pulse Rate 102 H 88 Pulse Rate [Left] 97 H Respiratory Rate Blood Pressure O2 Sat by Pulse Oximetry 90 L 91 L 92 L 10/27/19 21:42 10/27/19 22:17 10/27/19 22:18 Temperature Pulse Rate 89 95 H 89 Pulse Rate [Left] Respiratory Rate Blood Pressure 111/65 O2 Sat by Pulse Oximetry 91 L 89 L 90 L 10/27/19 22:20 10/27/19 22:30 10/27/19 22:32 Temperature 101.1 F H 101 F H Pulse Rate 90 Pulse Rate [Left] Respiratory Rate 28 H Blood Pressure 122/69 O2 Sat by Pulse Oximetry 87 L 10/27/19 23:00 10/27/19 23:09 10/27/19 23:29 Temperature Pulse Rate 87 87 86 Pulse Rate [Left] Respiratory Rate Blood Pressure 128/65 O2 Sat by Pulse Oximetry 91 L 91 L 90 L 10/27/19 23:30 10/27/19 23:32 10/27/19 23:54 Temperature Pulse Rate 82 89 Pulse Rate [Left] Respiratory Rate 24 Blood Pressure 111/57 O2 Sat by Pulse Oximetry 90 L 91 L 10/28/19 00:00 10/28/19 00:02 10/28/19 00:30 Temperature 98.3 F Pulse Rate 79 78 Pulse Rate [Left] Respiratory Rate Blood Pressure 107/58 O2 Sat by Pulse Oximetry 91 L 95 10/28/19 00:57 10/28/19 02:18 10/28/19 02:20 Temperature 98.7 F 99.2 F Pulse Rate 77 87 Pulse Rate [Left] Respiratory Rate 24 Blood Pressure 130/71 130/71 O2 Sat by Pulse Oximetry 91 L 100 10/28/19 03:00 10/28/19 04:00 10/28/19 05:00 Temperature 99.1 F Pulse Rate 84 84 81 Pulse Rate [Left] Respiratory Rate 28 H 36 H 30 H Blood Pressure 153/78 151/79 132/71 O2 Sat by Pulse Oximetry 100 100 100 10/28/19 05:51 10/28/19 06:00 10/28/19 06:51 Temperature Pulse Rate 90 Pulse Rate [Left] Respiratory Rate 24 35 H 24 Blood Pressure 156/72 O2 Sat by Pulse Oximetry 100 10/28/19 07:00 10/28/19 08:00 10/28/19 09:00 Temperature 98.8 F Pulse Rate 85 83 95 H Pulse Rate [Left] Respiratory Rate 31 H 32 H 36 H Blood Pressure 115/61 105/59 118/65 O2 Sat by Pulse Oximetry 100 100 99 10/28/19 10:00 10/28/19 11:00 10/28/19 12:00 Temperature 98.8 F Pulse Rate 89 91 H 92 H Pulse Rate [Left] Respiratory Rate 39 H 40 H 48 H Blood Pressure 141/71 143/70 154/75 O2 Sat by Pulse Oximetry 97 100 98 10/28/19 12:20 10/28/19 13:00 10/28/19 14:00 Temperature Pulse Rate 101 H 96 H Pulse Rate [Left] Respiratory Rate 41 H 41 H Blood Pressure 142/69 141/72 O2 Sat by Pulse Oximetry 97 97 100 10/28/19 15:00 10/28/19 16:00 10/28/19 17:00 Temperature 99.8 F H Pulse Rate 98 H 103 H 101 H Pulse Rate [Left] Respiratory Rate 24 42 H 43 H Blood Pressure 148/70 139/72 140/75 O2 Sat by Pulse Oximetry 100 94 L 93 L 10/28/19 17:49 10/28/19 18:00 10/28/19 18:49 Temperature Pulse Rate 108 H Pulse Rate [Left] Respiratory Rate 25 H 52 H 24 Blood Pressure 132/70 O2 Sat by Pulse Oximetry 95 10/28/19 19:00 10/28/19 20:00 10/28/19 20:10 Temperature 99.2 F Pulse Rate 97 H 96 H 96 H Pulse Rate [Left] Respiratory Rate 41 H 41 H Blood Pressure 110/57 107/56 O2 Sat by Pulse Oximetry 100 100 99 10/28/19 21:00 10/28/19 22:00 10/28/19 23:00 Temperature Pulse Rate 91 H 91 H 86 Pulse Rate [Left] Respiratory Rate 39 H 38 H 38 H Blood Pressure 122/61 100/60 110/60 O2 Sat by Pulse Oximetry 99 100 99 10/29/19 00:00 10/29/19 00:19 10/29/19 01:00 Temperature Pulse Rate 88 84 83 Pulse Rate [Left] Respiratory Rate 45 H 41 H 36 H Blood Pressure 109/53 122/61 O2 Sat by Pulse Oximetry 96 100 99 10/29/19 02:00 10/29/19 02:09 10/29/19 02:46 Temperature Pulse Rate 85 83 Pulse Rate [Left] Respiratory Rate 42 H 30 H 30 H Blood Pressure 156/80 O2 Sat by Pulse Oximetry 97 98 06/07/20 02:47 10/29/19 03:00 10/29/19 03:31 Temperature 100.5 F H Pulse Rate 86 80 Pulse Rate [Left] Respiratory Rate 36 H 38 H Blood Pressure 158/83 O2 Sat by Pulse Oximetry 97 95 10/29/19 03:46 10/29/19 04:00 10/29/19 04:04 Temperature Pulse Rate 85 82 Pulse Rate [Left] Respiratory Rate 24 34 H 39 H Blood Pressure 125/63 O2 Sat by Pulse Oximetry 97 98 10/29/19 05:00 10/29/19 05:04 10/29/19 06:00 Temperature Pulse Rate 84 84 81 Pulse Rate [Left] Respiratory Rate 37 H 43 H 40 H Blood Pressure 127/68 125/68 O2 Sat by Pulse Oximetry 96 97 98 10/29/19 07:00 10/29/19 08:00 10/29/19 09:00 Temperature 98.7 F Pulse Rate 80 79 91 H Pulse Rate [Left] Respiratory Rate 16 38 H 44 H Blood Pressure 119/56 142/76 114/70 O2 Sat by Pulse Oximetry 97 99 97 10/29/19 10:00 10/29/19 10:02 10/29/19 10:25 Temperature Pulse Rate 97 H 97 H Pulse Rate [Left] Respiratory Rate 32 H 39 H Blood Pressure 98/41 129/67 O2 Sat by Pulse Oximetry 97 100 94 L 10/29/19 11:00 10/29/19 12:00 10/29/19 13:00 Temperature Pulse Rate 94 H 100 H 94 H Pulse Rate [Left] Respiratory Rate 24 25 H 25 H Blood Pressure 94/42 112/58 O2 Sat by Pulse Oximetry 98 100 100 10/29/19 14:00 10/29/19 15:00 10/29/19 15:34 Temperature Pulse Rate 86 86 85 Pulse Rate [Left] Respiratory Rate 26 H 26 H 47 H Blood Pressure 120/58 152/77 152/77 O2 Sat by Pulse Oximetry 100 100 100 10/29/19 16:00 10/29/19 16:30 10/29/19 17:00 Temperature 98.8 F Pulse Rate 99 H 99 H 98 H Pulse Rate [Left] Respiratory Rate 27 H 42 H 28 H Blood Pressure 129/74 129/74 129/74 O2 Sat by Pulse Oximetry 99 96 99 10/29/19 18:00 10/29/19 19:28 10/29/19 20:15 Temperature Pulse Rate 93 H 90 90 Pulse Rate [Left] Respiratory Rate 29 H 40 H Blood Pressure O2 Sat by Pulse Oximetry 95 100 100 10/29/19 20:24 10/29/19 20:59 10/29/19 22:33 Temperature 98.4 F Pulse Rate 84 90 97 H Pulse Rate [Left] Respiratory Rate 47 H 43 H 41 H Blood Pressure O2 Sat by Pulse Oximetry 99 100 97 10/29/19 22:58 10/29/19 23:45 10/30/19 00:00 Temperature 98.7 F Pulse Rate 85 87 85 Pulse Rate [Left] Respiratory Rate 43 H 34 H 34 H Blood Pressure 140/74 134/73 O2 Sat by Pulse Oximetry 100 100 100 10/30/19 00:03 10/30/19 01:00 10/30/19 02:00 Temperature Pulse Rate 85 83 83 Pulse Rate [Left] Respiratory Rate 37 H 34 H 40 H Blood Pressure 146/73 172/83 O2 Sat by Pulse Oximetry 100 100 100 10/30/19 02:21 10/30/19 03:00 10/30/19 04:00 Temperature Pulse Rate 77 73 Pulse Rate [Left] Respiratory Rate 36 H 34 H Blood Pressure 160/80 155/79 O2 Sat by Pulse Oximetry 100 100 10/30/19 04:28 10/30/19 05:00 10/30/19 05:22 Temperature 97.6 F Pulse Rate 73 84 79 Pulse Rate [Left] Respiratory Rate 39 H 33 H 37 H Blood Pressure 140/77 O2 Sat by Pulse Oximetry 97 94 L 93 L 10/30/19 06:00 10/30/19 06:17 10/30/19 07:00 Temperature Pulse Rate 79 77 78 Pulse Rate [Left] Respiratory Rate 33 H 37 H 39 H Blood Pressure 163/82 118/64 O2 Sat by Pulse Oximetry 100 100 97 10/30/19 07:34 Temperature Pulse Rate 69 Pulse Rate [Left] Respiratory Rate 36 H Blood Pressure O2 Sat by Pulse Oximetry 100 Labs: Laboratory Last Values WBC 9.2 X10^3/uL (3.6-10.0) 10/30/19 04:58 RBC 3.83 X10^6/uL (4.7-6.0) L 10/30/19 04:58 Hgb 11.2 g/dL (13.5-18.0) L 10/30/19 04:58 Hct 32.5 % (42.0-54.0) L 10/30/19 04:58 MCV 84.9 fL (80.0-100.0) 10/30/19 04:58 MCH 29.3 pg (27.0-34.0) 10/30/19 04:58 MCHC 34.5 g/dL (33.0-35.0) 10/30/19 04:58 RDW 13.8 % (11.6-16.5) 10/30/19 04:58 Plt Count 362 X10^3/uL (150.0-450.0) 10/30/19 04:58 Plt Count Comment Adequate (ADEQUATE) 10/28/19 04:45 MPV 8.9 fL (7.4-11.0) 10/30/19 04:58 Neut % (Auto) 83.1 % (42.0-75.0) H 10/30/19 04:58 Lymph % (Auto) 9.1 % (21.0-51.0) L 10/30/19 04:58 [place] % (Auto) 7.7 % (0.0-13.0) 10/30/19 04:58 Eos % (Auto) 0.0 % (0.9-2.9) L 10/30/19 04:58 Baso % (Auto) 0.1 % (0.2-1.0) L 10/30/19 04:58 Neut # (Auto) 7.7 x10^3/uL (2.2-4.8) H 10/30/19 04:58 Lymph # (Auto) 0.8 X10^3/uL (1.3-2.9) L 10/30/19 04:58 [place] # (Auto) 0.7 x10^3/uL (0.3-0.8) 10/30/19 04:58 Eos # (Auto) 0.0 x10^3/uL (0.0-0.2) 10/30/19 04:58 Baso # (Auto) 0.0 X10^3/uL (0.0-0.1) 10/30/19 04:58 Absolute Nucleated RBC 0.0 /100WBC 10/30/19 04:58 Total Counted 100 10/28/19 04:45 Neutrophils % (Manual) 82 % (39-76) H 10/28/19 04:45 Band Neutrophils % 3 % (0-10) 10/28/19 04:45 Lymphocytes % (Manual) 10 % (13-43) L 10/28/19 04:45 Monocytes % (Manual) 4 % (4-9) 10/28/19 04:45 Eosinophils % (Manual) 1 % (0-6) 10/28/19 04:45 Plt Morphology Comment Normal (NORMAL) 10/28/19 04:45 RBC Morphology Normal (NORMAL) 10/28/19 04:45 Sample Site Rr 10/30/19 05:00 ABG pH 7.440 (7.35-7.45) 10/30/19 05:00 ABG pCO2 37.0 mmHg (35.0-45.0) 10/30/19 05:00 ABG pO2 60.0 mmHg (80.0-100.0) L 10/30/19 05:00 ABG HCO3 25.1 mmol/L (22-26) 10/30/19 05:00 ABG O2 Saturation 92.0 % (90-100) 10/30/19 05:00 ABG Base Excess 1.1 mmol/L (-2.0-2.0) 10/30/19 05:00 Titi Test Pos 10/30/19 05:00 A-a Gradient 93.0 mmHg 10/30/19 05:00 FiO2 28.0 10/30/19 05:00 Blood Gas Comments [facility] 10/30/19 05:00 Sodium 131 mmol/L (136-145) L 10/30/19 04:58 Corrected Sodium 135 mmol/L (136-145) L 10/30/19 04:58 Potassium 4.1 mmol/L (3.5-5.1) 10/30/19 04:58 Chloride 96 mmol/L (98-107) L 10/30/19 04:58 Carbon Dioxide 24.5 mmol/L (21-32) 10/30/19 04:58 BUN 14 mg/dL (7-18) 10/30/19 04:58 Creatinine 0.87 mg/dL (0.70-1.30) 10/30/19 04:58 Est GFR (MDRD) Af Amer > 60 (>60) 10/30/19 04:58 Est GFR (MDRD) Non-Af > 60 (>60) 10/30/19 04:58 Glucose 282 mg/dL (65-99) H 10/30/19 04:58 Calcium 8.2 mg/dL (8.5-10.1) L 10/30/19 04:58 Corrected Calcium 9.9 mg/dL (8.5-10.1) 10/30/19 04:58 Total Bilirubin 0.40 mg/dL (0.2-1.0) 10/30/19 04:58 AST 72 Units/L (15-37) H 10/30/19 04:58 ALT 100 Units/L (12-78) H 10/30/19 04:58 Alkaline Phosphatase 161 Units/L (46-116) H 10/30/19 04:58 C-Reactive Protein 308.00 mg/L (0-3.0) H 10/28/19 04:45 Total Protein 6.9 g/dL (6.4-8.2) 10/30/19 04:58 Albumin 1.9 g/dL (3.4-5.0) L 10/30/19 04:58 Globulin 5.0 g/dL (2.5-4.5) H 10/30/19 04:58 Albumin/Globulin Ratio 0.4 Ratio (1.1-2.1) L 10/30/19 04:58 Influenza Type A Ag Negative-presumptive (NEGATIVE) 10/27/19 20:23 Influenza Type B Ag Negative-presumptive (NEGATIVE) 10/27/19 20:23 Mycoplasma pneumon IgG Negative (NEGATIVE) 10/27/19 19:53 SARS-CoV-2 (PCR) Positive (NEGATIVE) A 10/27/19 22:45 Miscellaneous Test Cancelled 10/27/19 19:05 Reason For Visit: MULTIFOCAL PNEUMONIA; COVID SUSPECT; DIABETES Discharge Date Discharge Date: 10/30/19 Discharge Diagnosis All Active Problems (Updated 10/29/19 @ 10:54 by Sunday Barrientos) Elevated liver enzymes (Acute) Acute respiratory failure (Acute) Pneumonia due to COVID-19 virus (Acute) Pneumonia (Acute) Uncontrolled diabetes mellitus (Acute) Dehydration (Acute) Diabetes mellitus, type 2 (Chronic) CAP (community acquired pneumonia) (Acute) Sepsis (Acute) Back pain (Chronic) Multifocal pneumonia (Acute) COVID-19 virus IgG antibody test result unknown (Acute) Hyponatremia (Acute) Plan of Treatment: Continue with present treatment and follow up plan. Pt is to keep follow up appointment as instructed and take medications as ordered. Discharge Medications Discharge Medications: No Known Drug Allergies Allergy (Verified 10/27/19 18:43) CONTINUE taking the following medications aspirin 81 mg PO DAILY 10/27/19 [History] glipizide 20 mg PO BID 10/27/19 [History] metformin 850 mg PO TID 10/27/19 [History] Discharge Disposition Discharge Disposition: Home Discharge Condition: Stable
[2019-10-30] MEDS: ZITHROMAX INJ 500 MG VIAL 250 MG in NS 250 ML IV 250 ML IV SCH (08:36)
[2019-10-30] MEDS: ASPIRIN 81 MG CHEWTAB PO SCH (08:37)
[2019-10-30] MEDS: VITAMIN C PO SCH (08:37)
[2019-10-30] MEDS: LOVENOX INJ 40 MG SYR SC SCH (08:37)
[2019-10-30] MEDS: PREDNISONE TAB 20 MG PO SCH (08:37)
[2019-10-30] MEDS: VENTOLIN or PROAIR HFA IN PRN ×4 (08:45→20:10)
--- NOTE | 2019-10-30 10:13 | PCM.PROG ---
Progress Note Progress Note for Day of Date of Exam: 10/30/19 Subjective Subjective: Pt is a 53 yo m pmhx DMT2, admitted for COVID pneumonia(positive on 10/27/19) and acute respiratory failure. This morning he is sitting up in bed. RT did ambulatory O2 at which patient desaturated to 70s and had to be placed on Hiflo oxygen. He was afebrile overnight. CXR yesterday showed worsening multifocal pneumonia. Labs/imaging: Wbc 9.2, Hgb 11.2, Plt 362, Na 135, K 4.1, Cr 0.87, Gluc 282, ABG 7.4/37/60/25/92% on RA. Pt's liver enzymes were mildly elevated, now trending down after switching Tylenol to ibuprofen. Continue azithromycin and prednisone today. Treatments include IVF@KVO, Vit C daily, Albuterol inh, I/S. Will give duoneb tx today. Continue to monitor and follow up labs/imaging in the morning. Past Medical Family Social History Past Med/Fam/Surg Hx: No changes since H&P Allergies: Allergies No Known Drug Allergies Allergy (Verified 10/27/19 18:43) Review of Systems ROS: No change since H&P Vital Signs and I&O's Vital Signs: Temperature 97.7 F Pulse Rate [Left] 97 Pulse Rate 88 Respiratory Rate 21 Blood Pressure [Right Arm] 108/68 Blood Pressure 120/59 O2 Sat by Pulse Oximetry 97 Intake and Output: Intake & Output 10/27/19 10/28/19 10/29/19 10/30/19 23:59 23:59 23:59 23:59 Intake Total 1938 160 / 160 Balance 1938 160 / 160 Physical Exam Oriented: Normal Eyes: Normal Ear: Normal Nose: Normal Respiratory: Rales Cardiovascular: Normal : Normal Auscultation: Bowel Sounds: Normal Tenderness: Normal Skin: Normal Musculoskeletal: Normal Psychiatric: Normal Speech Pattern: Clear and Appropriate Laboratory and Diagnostics Result Diagrams: 10/30/19 04:58 10/30/19 04:58 Labs: Laboratory WBC 9.2 X10^3/uL (3.6-10.0) 10/30/19 04:58 RBC 3.83 X10^6/uL (4.7-6.0) L 10/30/19 04:58 Hgb 11.2 g/dL (13.5-18.0) L 10/30/19 04:58 Hct 32.5 % (42.0-54.0) L 10/30/19 04:58 MCV 84.9 fL (80.0-100.0) 10/30/19 04:58 MCH 29.3 pg (27.0-34.0) 10/30/19 04:58 MCHC 34.5 g/dL (33.0-35.0) 10/30/19 04:58 RDW 13.8 % (11.6-16.5) 10/30/19 04:58 Plt Count 362 X10^3/uL (150.0-450.0) 10/30/19 04:58 Plt Count Comment Adequate (ADEQUATE) 10/28/19 04:45 MPV 8.9 fL (7.4-11.0) 10/30/19 04:58 Neut % (Auto) 83.1 % (42.0-75.0) H 10/30/19 04:58 Lymph % (Auto) 9.1 % (21.0-51.0) L 10/30/19 04:58 [place] % (Auto) 7.7 % (0.0-13.0) 10/30/19 04:58 Eos % (Auto) 0.0 % (0.9-2.9) L 10/30/19 04:58 Baso % (Auto) 0.1 % (0.2-1.0) L 10/30/19 04:58 Neut # (Auto) 7.7 x10^3/uL (2.2-4.8) H 10/30/19 04:58 Lymph # (Auto) 0.8 X10^3/uL (1.3-2.9) L 10/30/19 04:58 [place] # (Auto) 0.7 x10^3/uL (0.3-0.8) 10/30/19 04:58 Eos # (Auto) 0.0 x10^3/uL (0.0-0.2) 10/30/19 04:58 Baso # (Auto) 0.0 X10^3/uL (0.0-0.1) 10/30/19 04:58 Absolute Nucleated RBC 0.0 /100WBC 10/30/19 04:58 Total Counted 100 10/28/19 04:45 Neutrophils % (Manual) 82 % (39-76) H 10/28/19 04:45 Band Neutrophils % 3 % (0-10) 10/28/19 04:45 Lymphocytes % (Manual) 10 % (13-43) L 10/28/19 04:45 Monocytes % (Manual) 4 % (4-9) 10/28/19 04:45 Eosinophils % (Manual) 1 % (0-6) 10/28/19 04:45 Plt Morphology Comment Normal (NORMAL) 10/28/19 04:45 RBC Morphology Normal (NORMAL) 10/28/19 04:45 Sample Site Rr 10/30/19 05:00 ABG pH 7.440 (7.35-7.45) 10/30/19 05:00 ABG pCO2 37.0 mmHg (35.0-45.0) 10/30/19 05:00 ABG pO2 60.0 mmHg (80.0-100.0) L 10/30/19 05:00 ABG HCO3 25.1 mmol/L (22-26) 10/30/19 05:00 ABG O2 Saturation 92.0 % (90-100) 10/30/19 05:00 ABG Base Excess 1.1 mmol/L (-2.0-2.0) 10/30/19 05:00 Titi Test Pos 10/30/19 05:00 A-a Gradient 93.0 mmHg 10/30/19 05:00 FiO2 28.0 10/30/19 05:00 Blood Gas Comments [facility] 10/30/19 05:00 Sodium 131 mmol/L (136-145) L 10/30/19 04:58 Corrected Sodium 135 mmol/L (136-145) L 10/30/19 04:58 Potassium 4.1 mmol/L (3.5-5.1) 10/30/19 04:58 Chloride 96 mmol/L (98-107) L 10/30/19 04:58 Carbon Dioxide 24.5 mmol/L (21-32) 10/30/19 04:58 BUN 14 mg/dL (7-18) 10/30/19 04:58 Creatinine 0.87 mg/dL (0.70-1.30) 10/30/19 04:58 Est GFR (MDRD) Af Amer > 60 (>60) 10/30/19 04:58 Est GFR (MDRD) Non-Af > 60 (>60) 10/30/19 04:58 Glucose 282 mg/dL (65-99) H 10/30/19 04:58 Calcium 8.2 mg/dL (8.5-10.1) L 10/30/19 04:58 Corrected Calcium 9.9 mg/dL (8.5-10.1) 10/30/19 04:58 Total Bilirubin 0.40 mg/dL (0.2-1.0) 10/30/19 04:58 AST 72 Units/L (15-37) H 10/30/19 04:58 ALT 100 Units/L (12-78) H 10/30/19 04:58 Alkaline Phosphatase 161 Units/L (46-116) H 10/30/19 04:58 C-Reactive Protein 308.00 mg/L (0-3.0) H 10/28/19 04:45 Total Protein 6.9 g/dL (6.4-8.2) 10/30/19 04:58 Albumin 1.9 g/dL (3.4-5.0) L 10/30/19 04:58 Globulin 5.0 g/dL (2.5-4.5) H 10/30/19 04:58 Albumin/Globulin Ratio 0.4 Ratio (1.1-2.1) L 10/30/19 04:58 Influenza Type A Ag Negative-presumptive (NEGATIVE) 10/27/19 20:23 Influenza Type B Ag Negative-presumptive (NEGATIVE) 10/27/19 20:23 Mycoplasma pneumon IgG Negative (NEGATIVE) 10/27/19 19:53 SARS-CoV-2 (PCR) Positive (NEGATIVE) A 10/27/19 22:45 Miscellaneous Test Cancelled 10/27/19 19:05 Plan (1) Pneumonia due to COVID-19 virus: Status: Acute Plan: Pneumonia protocol (2) Acute respiratory failure: Status: Acute Plan: Supplemental O2 (3) Diabetes mellitus, type 2: Status: Chronic Plan: SSI, resume home meds (4) Hyponatremia: Status: Acute (5) Elevated liver enzymes: Status: Acute
[2019-10-30] MEDS: DUONEB 0.5 MG/3 MG (3 mL) NEB SCH ×4 (10:40→18:35)
[2019-10-30] MEDS ORDERED: REMDESIVIR (INVESTIGATIONAL DRUG GS-5734) 200 MG in NS 250 ML IV 250 ML IV ONE (13:13)
[2019-10-30] MEDS: ROBITUSSIN AC PO PRN (16:24)
[2019-10-30] MEDS: TESSALON PERLES PO PRN (16:24)
[2019-10-30] MEDS: SNACK - Diabetic Appropriate PO SCH (20:55)
[2019-10-31] MEDS: DUONEB 0.5 MG/3 MG (3 mL) NEB SCH ×4 (00:40→18:10)
[2019-10-31 05:01] LABS: ABG BASE EXCESS 5.1 mmol/L (-2.0-2.0); ABG HCO3 29.9 mmol/L (22-26)
[2019-10-31 05:02] LABS: ABG ALLEN TEST POS
[2019-10-31 05:30] LABS: BASOPHILS % (AUTO) 0.3 % (0.2-1.0); EOSINOPHILS % (AUTO) 0.2 % (0.9-2.9); HEMATOCRIT 32.6 % (42.0-54.0); LYMPHOCYTES # (AUTO) 1.1 X10^3/uL (1.3-2.9); MEAN CORPUSCULAR HEMOGLOBIN 28.9 pg (27.0-34.0); MEAN CORPUSCULAR HGB CONC 33.9 g/dL (33.0-35.0); MEAN CORPUSCULAR VOLUME 85.3 fL (80.0-100.0); MEAN PLATELET VOLUME 8.4 fL (7.4-11.0); MONOCYTES % (AUTO) 10.3 % (0.0-13.0); NEUTROPHILS # (AUTO) 7.3 x10^3/uL (2.2-4.8); NEUTROPHILS % (AUTO) 77.2 % (42.0-75.0); PLATELET COUNT 473 X10^3/uL (150.0-450.0); RED BLOOD COUNT 3.82 X10^6/uL (4.7-6.0); RED CELL DISTRIBUTION WIDTH 13.9 % (11.6-16.5); WHITE BLOOD COUNT 9.5 X10^3/uL (3.6-10.0)
[2019-10-31 05:45] LABS: ALANINE AMINOTRANSFERASE 82 Units/L (12-78); ALKALINE PHOSPHATASE 158 Units/L (46-116); ASPARTATE AMINO TRANSFERASE 48 Units/L (15-37); BLOOD UREA NITROGEN 15 mg/dL (7-18); CALCIUM 8.4 mg/dL (8.5-10.1); CARBON DIOXIDE 29.3 mmol/L (21-32); CHLORIDE 98 mmol/L (98-107); COR NA(FOR HYPERGLY) 137 mmol/L (136-145); CREATININE 0.87 mg/dL (0.70-1.30); SODIUM 134 mmol/L (136-145); TOTAL PROTEIN 7.1 g/dL (6.4-8.2); eGFR NON BLACK RACES > 60 (>60)
--- NOTE | 2019-10-31 06:24 | RAD ---
HISTORYFollow-up COVID-19STUDYCHEST, 1 [id number]/07/2020FINDINGSThe heart is within normal limits in size. The macey are normal. Bilateral patchy and confluent alveolar infiltrates are unchanged when compared to the prior examination. No pleural effusions are identified. Bony thorax is unremarkable.IMPRESSIONNo change diffuse bilateral patchy and confluent alveolar infiltratesElectronically signed by: GEOVANNA HINES (Oct 31, 2019 06:23:19)
[2019-10-31] MEDS: HumuLIN R SUBCUT PRN ×4 (06:36→20:32)
[2019-10-31] MEDS: GLUCOPHAGE PO SCH ×2 (06:36→16:39)
[2019-10-31] MEDS: NS 1000 ML 1,000 ML IV SCH ×3 (06:38→21:13)
--- NOTE | 2019-10-31 08:22 | PCM.PROG ---
Progress Note Progress Note for Day of Date of Exam: 10/31/19 Subjective Subjective: Pt is a 53 yo m pmhx DMT2, admitted for COVID pneumonia(positive on 10/27/19) and acute respiratory failure. This morning he is laying in bed comfortably with hiflo oxygen. Labs/imaging: Wbc 9.5, Hgb 11, Plt 473, Na 134, K 3.6, Cr 0.87, Gluc 225, CRP 126, ABG 7.4/44/69/29/94% on Hiflo FiO2 54%. CXR:No change diffuse bilateral patchy and confluent alveolar infiltrates. His treatment includes Remdesivir(10/29), azithromycin, and prednisone, IVF@KVO, Vit C daily, Albuterol inh, Duonebs, I/S. Will continue to wean FiO2 and hopefully convert back to nasal cannula today. Continue to monitor and follow up labs/imaging in the morning. Past Medical Family Social History Past Med/Fam/Surg Hx: No changes since H&P Allergies: Allergies No Known Drug Allergies Allergy (Verified 10/27/19 18:43) Review of Systems ROS: No change since H&P Vital Signs and I&O's Vital Signs: Temperature 98.3 F Pulse Rate [Left] 97 Pulse Rate 89 Respiratory Rate 39 Blood Pressure [Right Arm] 108/68 Blood Pressure 146/70 O2 Sat by Pulse Oximetry 96 Intake and Output: Intake & Output 10/28/19 10/29/19 10/30/19 10/31/19 23:59 23:59 23:59 23:59 Intake Total 1938 1276 / 1276 342 / 342 Output Total 450 / 450 Balance 1938 826 / 826 342 / 342 Physical Exam Oriented: Normal Eyes: Normal Ear: Normal Nose: Normal Respiratory: Diminished and Rales Cardiovascular: Normal : Normal Auscultation: Bowel Sounds: Normal Tenderness: Normal Skin: Normal Musculoskeletal: Normal Psychiatric: Normal Speech Pattern: Clear and Appropriate Laboratory and Diagnostics Result Diagrams: 10/31/19 04:33 10/31/19 04:33 Labs: Laboratory WBC 9.5 X10^3/uL (3.6-10.0) 10/31/19 04:33 RBC 3.82 X10^6/uL (4.7-6.0) L 10/31/19 04:33 Hgb 11.0 g/dL (13.5-18.0) L 10/31/19 04:33 Hct 32.6 % (42.0-54.0) L 10/31/19 04:33 MCV 85.3 fL (80.0-100.0) 10/31/19 04:33 MCH 28.9 pg (27.0-34.0) 10/31/19 04:33 MCHC 33.9 g/dL (33.0-35.0) 10/31/19 04:33 RDW 13.9 % (11.6-16.5) 10/31/19 04:33 Plt Count 473 X10^3/uL (150.0-450.0) H 10/31/19 04:33 Plt Count Comment Adequate (ADEQUATE) 10/28/19 04:45 MPV 8.4 fL (7.4-11.0) 10/31/19 04:33 Neut % (Auto) 77.2 % (42.0-75.0) H 10/31/19 04:33 Lymph % (Auto) 12.0 % (21.0-51.0) L 10/31/19 04:33 [place] % (Auto) 10.3 % (0.0-13.0) 10/31/19 04:33 Eos % (Auto) 0.2 % (0.9-2.9) L 10/31/19 04:33 Baso % (Auto) 0.3 % (0.2-1.0) 10/31/19 04:33 Neut # (Auto) 7.3 x10^3/uL (2.2-4.8) H 10/31/19 04:33 Lymph # (Auto) 1.1 X10^3/uL (1.3-2.9) L 10/31/19 04:33 [place] # (Auto) 1.0 x10^3/uL (0.3-0.8) H 10/31/19 04:33 Eos # (Auto) 0.0 x10^3/uL (0.0-0.2) 10/31/19 04:33 Baso # (Auto) 0.0 X10^3/uL (0.0-0.1) 10/31/19 04:33 Absolute Nucleated RBC 0.0 /100WBC 10/31/19 04:33 Total Counted 100 10/28/19 04:45 Neutrophils % (Manual) 82 % (39-76) H 10/28/19 04:45 Band Neutrophils % 3 % (0-10) 10/28/19 04:45 Lymphocytes % (Manual) 10 % (13-43) L 10/28/19 04:45 Monocytes % (Manual) 4 % (4-9) 10/28/19 04:45 Eosinophils % (Manual) 1 % (0-6) 10/28/19 04:45 Plt Morphology Comment Normal (NORMAL) 10/28/19 04:45 RBC Morphology Normal (NORMAL) 10/28/19 04:45 Sample Site Lr 10/31/19 04:50 ABG pH 7.440 (7.35-7.45) 10/31/19 04:50 ABG pCO2 44.0 mmHg (35.0-45.0) 10/31/19 04:50 ABG pO2 69.0 mmHg (80.0-100.0) L 10/31/19 04:50 ABG HCO3 29.9 mmol/L (22-26) H 10/31/19 04:50 ABG O2 Saturation 94.0 % (90-100) 10/31/19 04:50 ABG Base Excess 5.1 mmol/L (-2.0-2.0) H 10/31/19 04:50 Titi Test Pos 10/31/19 04:50 A-a Gradient 261.0 mmHg 10/31/19 04:50 FiO2 54.0 10/31/19 04:50 Blood Gas Comments Flakita well ae 10/31/19 04:50 Sodium 134 mmol/L (136-145) L 10/31/19 04:33 Corrected Sodium 137 mmol/L (136-145) 10/31/19 04:33 Potassium 3.6 mmol/L (3.5-5.1) 10/31/19 04:33 Chloride 98 mmol/L (98-107) 10/31/19 04:33 Carbon Dioxide 29.3 mmol/L (21-32) 10/31/19 04:33 BUN 15 mg/dL (7-18) 10/31/19 04:33 Creatinine 0.87 mg/dL (0.70-1.30) 10/31/19 04:33 Est GFR (MDRD) Af Amer > 60 (>60) 10/31/19 04:33 Est GFR (MDRD) Non-Af > 60 (>60) 10/31/19 04:33 Glucose 225 mg/dL (65-99) H 10/31/19 04:33 Calcium 8.4 mg/dL (8.5-10.1) L 10/31/19 04:33 Corrected Calcium 10.0 mg/dL (8.5-10.1) 10/31/19 04:33 Total Bilirubin 0.30 mg/dL (0.2-1.0) 10/31/19 04:33 AST 48 Units/L (15-37) H 10/31/19 04:33 ALT 82 Units/L (12-78) H 10/31/19 04:33 Alkaline Phosphatase 158 Units/L (46-116) H 10/31/19 04:33 C-Reactive Protein 126.10 mg/L (0-3.0) H 10/31/19 04:33 Total Protein 7.1 g/dL (6.4-8.2) 10/31/19 04:33 Albumin 2.0 g/dL (3.4-5.0) L 10/31/19 04:33 Globulin 5.1 g/dL (2.5-4.5) H 10/31/19 04:33 Albumin/Globulin Ratio 0.4 Ratio (1.1-2.1) L 10/31/19 04:33 Influenza Type A Ag Negative-presumptive (NEGATIVE) 10/27/19 20:23 Influenza Type B Ag Negative-presumptive (NEGATIVE) 10/27/19 20:23 Mycoplasma pneumon IgG Negative (NEGATIVE) 10/27/19 19:53 SARS-CoV-2 (PCR) Positive (NEGATIVE) A 10/27/19 22:45 Miscellaneous Test Cancelled 10/27/19 19:05 Plan (1) Pneumonia due to COVID-19 virus: Status: Acute Plan: Pneumonia protocol (2) Acute respiratory failure: Status: Acute Plan: Supplemental O2 (3) Diabetes mellitus, type 2: Status: Chronic Plan: SSI, resume home meds (4) Hyponatremia: Status: Acute (5) Elevated liver enzymes: Status: Acute
[2019-10-31] MEDS: LOVENOX INJ 40 MG SYR SC SCH (09:21)
[2019-10-31] MEDS: ASPIRIN 81 MG CHEWTAB PO SCH (09:21)
[2019-10-31] MEDS: ZITHROMAX INJ 500 MG VIAL 250 MG in NS 250 ML IV 250 ML IV SCH (09:23)
[2019-10-31] MEDS: PREDNISONE TAB 20 MG PO SCH (09:23)
[2019-10-31] MEDS: ROBITUSSIN AC PO PRN ×2 (09:23→22:08)
[2019-10-31] MEDS: VITAMIN C PO SCH (09:23)
[2019-10-31] MEDS: TESSALON PERLES PO PRN ×2 (09:23→22:08)
[2019-10-31] MEDS: REMDESIVIR (INVESTIGATIONAL DRUG GS-5734) 100 MG in NS 250 ML IV 250 ML IV SCH (11:14)
[2019-10-31] MEDS: SNACK - Diabetic Appropriate PO SCH (20:31)
[2019-11-01] MEDS: DUONEB 0.5 MG/3 MG (3 mL) NEB SCH ×4 (00:50→18:20)
[2019-11-01 06:28] LABS: BASOPHILS % (AUTO) 0.1 % (0.2-1.0); EOSINOPHILS % (AUTO) 0.2 % (0.9-2.9); HEMOGLOBIN 11.1 g/dL (13.5-18.0); LYMPHOCYTES # (AUTO) 1.2 X10^3/uL (1.3-2.9); LYMPHOCYTES % (AUTO) 12.1 % (21.0-51.0); MEAN CORPUSCULAR HEMOGLOBIN 28.7 pg (27.0-34.0); MEAN CORPUSCULAR HGB CONC 33.6 g/dL (33.0-35.0); MEAN CORPUSCULAR VOLUME 85.2 fL (80.0-100.0); MEAN PLATELET VOLUME 8.3 fL (7.4-11.0); MONOCYTES # (AUTO) 1.1 x10^3/uL (0.3-0.8); MONOCYTES % (AUTO) 11.5 % (0.0-13.0); NEUTROPHILS # (AUTO) 7.3 x10^3/uL (2.2-4.8); NEUTROPHILS % (AUTO) 76.1 % (42.0-75.0); PLATELET COUNT 459 X10^3/uL (150.0-450.0); RED BLOOD COUNT 3.87 X10^6/uL (4.7-6.0); RED CELL DISTRIBUTION WIDTH 13.8 % (11.6-16.5); WHITE BLOOD COUNT 9.6 X10^3/uL (3.6-10.0)
[2019-11-01] MEDS: GLUCOPHAGE PO SCH ×2 (06:39→17:06)
[2019-11-01] MEDS: NS 1000 ML 1,000 ML IV SCH ×3 (06:39→21:40)
[2019-11-01] MEDS: HumuLIN R SUBCUT PRN ×4 (06:45→20:47)
[2019-11-01 06:50] LABS: ALANINE AMINOTRANSFERASE 85 Units/L (12-78); ALBUMIN 2.1 g/dL (3.4-5.0); ALKALINE PHOSPHATASE 138 Units/L (46-116); ASPARTATE AMINO TRANSFERASE 50 Units/L (15-37); BLOOD UREA NITROGEN 14 mg/dL (7-18); CALCIUM 8.5 mg/dL (8.5-10.1); CARBON DIOXIDE 29.1 mmol/L (21-32); CHLORIDE 97 mmol/L (98-107); COR NA(FOR HYPERGLY) 135 mmol/L (136-145); CREATININE 0.76 mg/dL (0.70-1.30); SODIUM 133 mmol/L (136-145); TOTAL PROTEIN 6.9 g/dL (6.4-8.2); eGFR NON BLACK RACES > 60 (>60)
--- NOTE | 2019-11-01 08:17 | PCM.PROG ---
Progress Note Progress Note for Day of Date of Exam: 11/01/19 Subjective Subjective: Pt is a 53 yo m pmhx DMT2, admitted for COVID pneumonia(positive on 10/27/19) and acute respiratory failure. This morning he is sitting up in bed. Labs/imaging: Wbc 9.6, Hgb 11.1, Plt 459, Na 133, K 3.7, Cr 0.76, Gluc 191. His treatment includes Remdesivir(10/29), azithromycin, and prednisone, IVF@KVO, Vit C daily, Albuterol inh, Duonebs, I/S. Yesterday was able to wean off hiflo oxygen and is currently on 2L nc. He was able to ambulate to the commode without oxygen briefly but O2 sat dropped down in the mid 80s and had to be placed back on again. He is having some gerd symptoms, will start on Pepcid. Continue to wean oxygen, monitor, and follow up labs/imaging in the morning. Past Medical Family Social History Past Med/Fam/Surg Hx: No changes since H&P Allergies: Allergies No Known Drug Allergies Allergy (Verified 10/27/19 18:43) Review of Systems ROS: No change since H&P Vital Signs and I&O's Vital Signs: Temperature 98.0 F Pulse Rate [Left] 97 Pulse Rate 88 Respiratory Rate 29 Blood Pressure [Right Arm] 108/68 Blood Pressure 138/67 O2 Sat by Pulse Oximetry 95 Intake and Output: Intake & Output 10/29/19 10/30/19 10/31/19 11/01/19 23:59 23:59 23:59 23:59 Intake Total 1276 / 1276 2776 / 2776 515 / 515 Output Total 450 / 450 Balance 826 / 826 2776 / 2776 515 / 515 Physical Exam Oriented: Normal Eyes: Normal Ear: Normal Nose: Normal Respiratory: Diminished Cardiovascular: Normal : Normal Auscultation: Bowel Sounds: Normal Tenderness: Normal Skin: Normal Musculoskeletal: Normal Psychiatric: Normal Speech Pattern: Clear and Appropriate Laboratory and Diagnostics Result Diagrams: 11/01/19 04:07 11/01/19 04:07 Labs: Laboratory WBC 9.6 X10^3/uL (3.6-10.0) 11/01/19 04:07 RBC 3.87 X10^6/uL (4.7-6.0) L 11/01/19 04:07 Hgb 11.1 g/dL (13.5-18.0) L 11/01/19 04:07 Hct 33.0 % (42.0-54.0) L 11/01/19 04:07 MCV 85.2 fL (80.0-100.0) 11/01/19 04:07 MCH 28.7 pg (27.0-34.0) 11/01/19 04:07 MCHC 33.6 g/dL (33.0-35.0) 11/01/19 04:07 RDW 13.8 % (11.6-16.5) 11/01/19 04:07 Plt Count 459 X10^3/uL (150.0-450.0) H 11/01/19 04:07 Plt Count Comment Adequate (ADEQUATE) 10/28/19 04:45 MPV 8.3 fL (7.4-11.0) 11/01/19 04:07 Neut % (Auto) 76.1 % (42.0-75.0) H 11/01/19 04:07 Lymph % (Auto) 12.1 % (21.0-51.0) L 11/01/19 04:07 [place] % (Auto) 11.5 % (0.0-13.0) 11/01/19 04:07 Eos % (Auto) 0.2 % (0.9-2.9) L 11/01/19 04:07 Baso % (Auto) 0.1 % (0.2-1.0) L 11/01/19 04:07 Neut # (Auto) 7.3 x10^3/uL (2.2-4.8) H 11/01/19 04:07 Lymph # (Auto) 1.2 X10^3/uL (1.3-2.9) L 11/01/19 04:07 [place] # (Auto) 1.1 x10^3/uL (0.3-0.8) H 11/01/19 04:07 Eos # (Auto) 0.0 x10^3/uL (0.0-0.2) 11/01/19 04:07 Baso # (Auto) 0.0 X10^3/uL (0.0-0.1) 11/01/19 04:07 Absolute Nucleated RBC 0.0 /100WBC 11/01/19 04:07 Total Counted 100 10/28/19 04:45 Neutrophils % (Manual) 82 % (39-76) H 10/28/19 04:45 Band Neutrophils % 3 % (0-10) 10/28/19 04:45 Lymphocytes % (Manual) 10 % (13-43) L 10/28/19 04:45 Monocytes % (Manual) 4 % (4-9) 10/28/19 04:45 Eosinophils % (Manual) 1 % (0-6) 10/28/19 04:45 Plt Morphology Comment Normal (NORMAL) 10/28/19 04:45 RBC Morphology Normal (NORMAL) 10/28/19 04:45 Sample Site Lr 10/31/19 04:50 ABG pH 7.440 (7.35-7.45) 10/31/19 04:50 ABG pCO2 44.0 mmHg (35.0-45.0) 10/31/19 04:50 ABG pO2 69.0 mmHg (80.0-100.0) L 10/31/19 04:50 ABG HCO3 29.9 mmol/L (22-26) H 10/31/19 04:50 ABG O2 Saturation 94.0 % (90-100) 10/31/19 04:50 ABG Base Excess 5.1 mmol/L (-2.0-2.0) H 10/31/19 04:50 Titi Test Pos 10/31/19 04:50 A-a Gradient 261.0 mmHg 10/31/19 04:50 FiO2 54.0 10/31/19 04:50 Blood Gas Comments Flakita well ae 10/31/19 04:50 Sodium 133 mmol/L (136-145) L 11/01/19 04:07 Corrected Sodium 135 mmol/L (136-145) L 11/01/19 04:07 Potassium 3.7 mmol/L (3.5-5.1) 11/01/19 04:07 Chloride 97 mmol/L (98-107) L 11/01/19 04:07 Carbon Dioxide 29.1 mmol/L (21-32) 11/01/19 04:07 BUN 14 mg/dL (7-18) 11/01/19 04:07 Creatinine 0.76 mg/dL (0.70-1.30) 11/01/19 04:07 Est GFR (MDRD) Af Amer > 60 (>60) 11/01/19 04:07 Est GFR (MDRD) Non-Af > 60 (>60) 11/01/19 04:07 Glucose 191 mg/dL (65-99) H 11/01/19 04:07 POC Glucose (mg/dL) 230 mg/dL (65-99) H 11/01/19 06:31 Calcium 8.5 mg/dL (8.5-10.1) 11/01/19 04:07 Corrected Calcium 10.0 mg/dL (8.5-10.1) 11/01/19 04:07 Total Bilirubin 0.40 mg/dL (0.2-1.0) 11/01/19 04:07 AST 50 Units/L (15-37) H 11/01/19 04:07 ALT 85 Units/L (12-78) H 11/01/19 04:07 Alkaline Phosphatase 138 Units/L (46-116) H 11/01/19 04:07 C-Reactive Protein 97.80 mg/L (0-3.0) H 11/01/19 04:07 Total Protein 6.9 g/dL (6.4-8.2) 11/01/19 04:07 Albumin 2.1 g/dL (3.4-5.0) L 11/01/19 04:07 Globulin 4.8 g/dL (2.5-4.5) H 11/01/19 04:07 Albumin/Globulin Ratio 0.4 Ratio (1.1-2.1) L 11/01/19 04:07 Influenza Type A Ag Negative-presumptive (NEGATIVE) 10/27/19 20:23 Influenza Type B Ag Negative-presumptive (NEGATIVE) 10/27/19 20:23 Mycoplasma pneumon IgG Negative (NEGATIVE) 10/27/19 19:53 SARS-CoV-2 (PCR) Positive (NEGATIVE) A 10/27/19 22:45 Miscellaneous Test Cancelled 10/27/19 19:05 Plan (1) Pneumonia due to COVID-19 virus: Status: Acute Plan: Pneumonia protocol (2) Acute respiratory failure: Status: Acute Plan: Supplemental O2 (3) Diabetes mellitus, type 2: Status: Chronic Plan: SSI, resume home meds (4) Hyponatremia: Status: Acute (5) Elevated liver enzymes: Status: Acute
[2019-11-01] MEDS: ASPIRIN 81 MG CHEWTAB PO SCH (09:16)
[2019-11-01] MEDS: LOVENOX INJ 40 MG SYR SC SCH (09:19)
[2019-11-01] MEDS: REMDESIVIR (INVESTIGATIONAL DRUG GS-5734) 100 MG in NS 250 ML IV 250 ML IV SCH (09:20)
[2019-11-01] MEDS: PREDNISONE TAB 20 MG PO SCH (09:20)
[2019-11-01] MEDS: PEPCID TAB 20 MG PO SCH ×2 (09:20→20:46)
[2019-11-01] MEDS: ZITHROMAX INJ 500 MG VIAL 250 MG in NS 250 ML IV 250 ML IV SCH (09:21)
[2019-11-01] MEDS: VITAMIN C PO SCH (09:21)
[2019-11-01] MEDS: ROBITUSSIN AC PO PRN (20:47)
[2019-11-01] MEDS: TESSALON PERLES PO PRN (20:47)
[2019-11-01] MEDS: SNACK - Diabetic Appropriate PO SCH (20:50)
[2019-11-02] MEDS: DUONEB 0.5 MG/3 MG (3 mL) NEB SCH ×4 (00:30→18:40)
[2019-11-02 05:35] LABS: BASOPHILS # (AUTO) 0.1 X10^3/uL (0.0-0.1); BASOPHILS % (AUTO) 0.7 % (0.2-1.0); EOSINOPHILS % (AUTO) 0.4 % (0.9-2.9); HEMATOCRIT 34.9 % (42.0-54.0); HEMOGLOBIN 11.8 g/dL (13.5-18.0); LYMPHOCYTES # (AUTO) 1.3 X10^3/uL (1.3-2.9); LYMPHOCYTES % (AUTO) 14.2 % (21.0-51.0); MEAN CORPUSCULAR HEMOGLOBIN 29.4 pg (27.0-34.0); MEAN CORPUSCULAR HGB CONC 33.9 g/dL (33.0-35.0); MEAN CORPUSCULAR VOLUME 86.6 fL (80.0-100.0); MEAN PLATELET VOLUME 8.5 fL (7.4-11.0); MONOCYTES # (AUTO) 0.9 x10^3/uL (0.3-0.8); NEUTROPHILS # (AUTO) 7.1 x10^3/uL (2.2-4.8); NEUTROPHILS % (AUTO) 74.7 % (42.0-75.0); PLATELET COUNT 556 X10^3/uL (150.0-450.0); RED BLOOD COUNT 4.03 X10^6/uL (4.7-6.0); RED CELL DISTRIBUTION WIDTH 14.1 % (11.6-16.5); WHITE BLOOD COUNT 9.5 X10^3/uL (3.6-10.0)
[2019-11-02] MEDS: HumuLIN R SUBCUT PRN ×4 (05:44→20:44)
[2019-11-02] MEDS: NS 1000 ML 1,000 ML IV SCH ×3 (05:44→21:13)
[2019-11-02 05:46] LABS: ALANINE AMINOTRANSFERASE 87 Units/L (12-78); ALBUMIN 2.2 g/dL (3.4-5.0); ALKALINE PHOSPHATASE 155 Units/L (46-116); ASPARTATE AMINO TRANSFERASE 59 Units/L (15-37); BLOOD UREA NITROGEN 18 mg/dL (7-18); CALCIUM 8.7 mg/dL (8.5-10.1); CARBON DIOXIDE 30.5 mmol/L (21-32); CHLORIDE 97 mmol/L (98-107); COR CA(FOR HYPOALB) 10.1 mg/dL (8.5-10.1); COR NA(FOR HYPERGLY) 137 mmol/L (136-145); CREATININE 0.94 mg/dL (0.70-1.30); SODIUM 132 mmol/L (136-145); TOTAL PROTEIN 7.1 g/dL (6.4-8.2); eGFR NON BLACK RACES > 60 (>60)
[2019-11-02] MEDS: ZITHROMAX INJ 500 MG VIAL 250 MG in NS 250 ML IV 250 ML IV SCH (08:28)
[2019-11-02] MEDS: ASPIRIN 81 MG CHEWTAB PO SCH (08:33)
[2019-11-02] MEDS: VITAMIN C PO SCH (08:33)
[2019-11-02] MEDS: PREDNISONE TAB 20 MG PO SCH (08:34)
[2019-11-02] MEDS: PEPCID TAB 20 MG PO SCH ×2 (08:34→20:43)
[2019-11-02] MEDS: LOVENOX INJ 40 MG SYR SC SCH (08:35)
--- NOTE | 2019-11-02 09:58 | PCM.PROG ---
Progress Note Progress Note for Day of Date of Exam: 11/02/19 Subjective Subjective: Pt is a 53 yo m pmhx DMT2, admitted for COVID pneumonia(positive on 10/27/19) and acute respiratory failure. This morning he is sitting up in bed eating his breakfast. He reports his stomach pain improved with Pepcid and he is breathing a little easier. Labs /imaging: Wbc 9.5, Hgb 11.8, Plt 556, Na 137, K 4.0, Cr 0.94, Gluc 315. His treatment includes Remdesivir(10/29), IVF@KVO, Vit C daily, Albuterol inh, Duonebs, I/S. Will d/c azithromycin and prednisone(received 5 days). He is currently on 2L supplemental oxygen, will try to wean today and get ambulatory O2. Continue to monitor and follow up labs/imaging in the morning. Past Medical Family Social History Past Med/Fam/Surg Hx: No changes since H&P Allergies: Allergies No Known Drug Allergies Allergy (Verified 10/27/19 18:43) Review of Systems ROS: No change since H&P Vital Signs and I&O's Vital Signs: Temperature 98.1 F Pulse Rate [Left] 97 Pulse Rate 96 Respiratory Rate 25 Blood Pressure [Right Arm] 108/68 Blood Pressure 92/53 O2 Sat by Pulse Oximetry 99 Intake and Output: Intake & Output 10/30/19 10/31/19 11/01/19 11/02/19 23:59 23:59 23:59 23:59 Intake Total 1276 / 1276 2776 / 2776 2912 / 2912 430 / 430 Output Total 450 / 450 800 / 800 900 / 900 Balance 826 / 826 2776 / 2776 2112 / 2112 -470 / -470 Physical Exam Oriented: Normal Eyes: Normal Ear: Normal Nose: Normal Respiratory: Diminished Cardiovascular: Normal : Normal Auscultation: Bowel Sounds: Normal Tenderness: Normal Skin: Normal Musculoskeletal: Normal Psychiatric: Normal Speech Pattern: Clear and Appropriate Laboratory and Diagnostics Result Diagrams: 11/02/19 04:49 11/02/19 04:49 Labs: Laboratory WBC 9.5 X10^3/uL (3.6-10.0) 11/02/19 04:49 RBC 4.03 X10^6/uL (4.7-6.0) L 11/02/19 04:49 Hgb 11.8 g/dL (13.5-18.0) L 11/02/19 04:49 Hct 34.9 % (42.0-54.0) L 11/02/19 04:49 MCV 86.6 fL (80.0-100.0) 11/02/19 04:49 MCH 29.4 pg (27.0-34.0) 11/02/19 04:49 MCHC 33.9 g/dL (33.0-35.0) 11/02/19 04:49 RDW 14.1 % (11.6-16.5) 11/02/19 04:49 Plt Count 556 X10^3/uL (150.0-450.0) H 11/02/19 04:49 Plt Count Comment Adequate (ADEQUATE) 10/28/19 04:45 MPV 8.5 fL (7.4-11.0) 11/02/19 04:49 Neut % (Auto) 74.7 % (42.0-75.0) 11/02/19 04:49 Lymph % (Auto) 14.2 % (21.0-51.0) L 11/02/19 04:49 [place] % (Auto) 10.0 % (0.0-13.0) 11/02/19 04:49 Eos % (Auto) 0.4 % (0.9-2.9) L 11/02/19 04:49 Baso % (Auto) 0.7 % (0.2-1.0) 11/02/19 04:49 Neut # (Auto) 7.1 x10^3/uL (2.2-4.8) H 11/02/19 04:49 Lymph # (Auto) 1.3 X10^3/uL (1.3-2.9) 11/02/19 04:49 [place] # (Auto) 0.9 x10^3/uL (0.3-0.8) H 11/02/19 04:49 Eos # (Auto) 0.0 x10^3/uL (0.0-0.2) 11/02/19 04:49 Baso # (Auto) 0.1 X10^3/uL (0.0-0.1) 11/02/19 04:49 Absolute Nucleated RBC 0.1 /100WBC 11/02/19 04:49 Total Counted 100 10/28/19 04:45 Neutrophils % (Manual) 82 % (39-76) H 10/28/19 04:45 Band Neutrophils % 3 % (0-10) 10/28/19 04:45 Lymphocytes % (Manual) 10 % (13-43) L 10/28/19 04:45 Monocytes % (Manual) 4 % (4-9) 10/28/19 04:45 Eosinophils % (Manual) 1 % (0-6) 10/28/19 04:45 Plt Morphology Comment Normal (NORMAL) 10/28/19 04:45 RBC Morphology Normal (NORMAL) 10/28/19 04:45 Sample Site Lr 10/31/19 04:50 ABG pH 7.440 (7.35-7.45) 10/31/19 04:50 ABG pCO2 44.0 mmHg (35.0-45.0) 10/31/19 04:50 ABG pO2 69.0 mmHg (80.0-100.0) L 10/31/19 04:50 ABG HCO3 29.9 mmol/L (22-26) H 10/31/19 04:50 ABG O2 Saturation 94.0 % (90-100) 10/31/19 04:50 ABG Base Excess 5.1 mmol/L (-2.0-2.0) H 10/31/19 04:50 Titi Test Pos 10/31/19 04:50 A-a Gradient 261.0 mmHg 10/31/19 04:50 FiO2 54.0 10/31/19 04:50 Blood Gas Comments Flakita well ae 10/31/19 04:50 Sodium 132 mmol/L (136-145) L 11/02/19 04:49 Corrected Sodium 137 mmol/L (136-145) 11/02/19 04:49 Potassium 4.0 mmol/L (3.5-5.1) 11/02/19 04:49 Chloride 97 mmol/L (98-107) L 11/02/19 04:49 Carbon Dioxide 30.5 mmol/L (21-32) 11/02/19 04:49 BUN 18 mg/dL (7-18) 11/02/19 04:49 Creatinine 0.94 mg/dL (0.70-1.30) 11/02/19 04:49 Est GFR (MDRD) Af Amer > 60 (>60) 11/02/19 04:49 Est GFR (MDRD) Non-Af > 60 (>60) 11/02/19 04:49 Glucose 315 mg/dL (65-99) H 11/02/19 04:49 POC Glucose (mg/dL) 370 mg/dL (65-99) H 11/01/19 16:23 Calcium 8.7 mg/dL (8.5-10.1) 11/02/19 04:49 Corrected Calcium 10.1 mg/dL (8.5-10.1) 11/02/19 04:49 Total Bilirubin 0.30 mg/dL (0.2-1.0) 11/02/19 04:49 AST 59 Units/L (15-37) H 11/02/19 04:49 ALT 87 Units/L (12-78) H 11/02/19 04:49 Alkaline Phosphatase 155 Units/L (46-116) H 11/02/19 04:49 C-Reactive Protein 97.80 mg/L (0-3.0) H 11/01/19 04:07 Total Protein 7.1 g/dL (6.4-8.2) 11/02/19 04:49 Albumin 2.2 g/dL (3.4-5.0) L 11/02/19 04:49 Globulin 4.9 g/dL (2.5-4.5) H 11/02/19 04:49 Albumin/Globulin Ratio 0.4 Ratio (1.1-2.1) L 11/02/19 04:49 Influenza Type A Ag Negative-presumptive (NEGATIVE) 10/27/19 20:23 Influenza Type B Ag Negative-presumptive (NEGATIVE) 10/27/19 20:23 Mycoplasma pneumon IgG Negative (NEGATIVE) 10/27/19 19:53 SARS-CoV-2 (PCR) Positive (NEGATIVE) A 10/27/19 22:45 Miscellaneous Test Cancelled 10/27/19 19:05 Plan (1) Pneumonia due to COVID-19 virus: Status: Acute Plan: Pneumonia protocol (2) Acute respiratory failure: Status: Acute Plan: Supplemental O2 (3) Diabetes mellitus, type 2: Status: Chronic Plan: SSI, resume home meds (4) Hyponatremia: Status: Acute (5) Elevated liver enzymes: Status: Acute
[2019-11-02] MEDS: GLUCOPHAGE PO SCH ×2 (10:01→16:57)
[2019-11-02] MEDS: REMDESIVIR (INVESTIGATIONAL DRUG GS-5734) 100 MG in NS 250 ML IV 250 ML IV SCH (10:01)
[2019-11-02] MEDS: SNACK - Diabetic Appropriate PO SCH (20:03)
[2019-11-03] MEDS: DUONEB 0.5 MG/3 MG (3 mL) NEB SCH ×2 (00:38→06:00)
[2019-11-03] MEDS: NS 1000 ML 1,000 ML IV SCH (05:40)
[2019-11-03 05:50] LABS: BASOPHILS % (AUTO) 0.4 % (0.2-1.0); BLOOD UREA NITROGEN 15 mg/dL (7-18); CALCIUM 8.5 mg/dL (8.5-10.1); CARBON DIOXIDE 30.1 mmol/L (21-32); CHLORIDE 96 mmol/L (98-107); COR NA(FOR HYPERGLY) 135 mmol/L (136-145); CREATININE 0.84 mg/dL (0.70-1.30); EOSINOPHILS # (AUTO) 0.1 x10^3/uL (0.0-0.2); HEMATOCRIT 33.4 % (42.0-54.0); HEMOGLOBIN 11.2 g/dL (13.5-18.0); LYMPHOCYTES # (AUTO) 1.4 X10^3/uL (1.3-2.9); LYMPHOCYTES % (AUTO) 18.3 % (21.0-51.0); MEAN CORPUSCULAR HEMOGLOBIN 28.7 pg (27.0-34.0); MEAN CORPUSCULAR HGB CONC 33.6 g/dL (33.0-35.0); MEAN CORPUSCULAR VOLUME 85.4 fL (80.0-100.0); MEAN PLATELET VOLUME 8.2 fL (7.4-11.0); MONOCYTES # (AUTO) 0.7 x10^3/uL (0.3-0.8); MONOCYTES % (AUTO) 9.5 % (0.0-13.0); NEUTROPHILS # (AUTO) 5.4 x10^3/uL (2.2-4.8); NEUTROPHILS % (AUTO) 70.8 % (42.0-75.0); PLATELET COUNT 575 X10^3/uL (150.0-450.0); RED BLOOD COUNT 3.91 X10^6/uL (4.7-6.0); RED CELL DISTRIBUTION WIDTH 13.9 % (11.6-16.5); SODIUM 130 mmol/L (136-145); WHITE BLOOD COUNT 7.6 X10^3/uL (3.6-10.0); eGFR NON BLACK RACES > 60 (>60)
[2019-11-03] MEDS: GLUCOPHAGE PO SCH (06:09)
[2019-11-03] MEDS: HumuLIN R SUBCUT PRN ×2 (06:09→13:00)
--- NOTE | 2019-11-03 08:05 | W.DIS.FURT ---
Summary of Discharge Discharge Summary of Date Date of Exam: 11/03/19 Admission Date Date of Admission: 10/27/19 Admission Diagnosis Patient Problems (Updated 10/30/19 @ 11:07 by Sheyla Mallory) Elevated liver enzymes (Acute) R74.8 Acute respiratory failure (Acute) J96.00 Pneumonia due to COVID-19 virus (Acute) U07.1, J12.89 Multifocal pneumonia (Acute) J18.9 COVID-19 virus IgG antibody test result unknown (Acute) Z01.84 Hyponatremia (Acute) E87.1 Diabetes mellitus, type 2 (Chronic) E11.9 Hospital Course: Pt is a 53 yo m pmhx DMT2, admitted for COVID pneumonia(positive on 10/27/19) and acute respiratory failure. He initially required HiFlo oxygen that was gradually weaned down to nasal cannula. His treatment includes Remdesivir(10/29, received 3 days), IVF@KVO, Vit C daily, Albuterol inh, Duonebs, I/S, azithromycin and prednisone(received 5 days). On day of discharge pt able to be weaned completely off supplemental O2, pulseOx >90% on RA. He is in stable condition. Discharged with instructions to follow up with pcp in 1 week. Vital Signs: Vital Signs (72 hours) 10/31/19 09:00 10/31/19 10:00 10/31/19 11:00 Temperature Pulse Rate 87 94 H 80 Respiratory Rate 37 H 35 H 49 H Blood Pressure 143/81 115/63 125/68 O2 Sat by Pulse Oximetry 100 94 L 91 L 10/31/19 12:00 10/31/19 13:00 10/31/19 13:15 Temperature 98.0 F Pulse Rate 76 86 88 Respiratory Rate 42 H 32 H Blood Pressure 138/75 122/69 O2 Sat by Pulse Oximetry 93 L 94 L 96 10/31/19 14:00 10/31/19 15:00 10/31/19 16:00 Temperature 98.1 F Pulse Rate 110 H 90 87 Respiratory Rate 39 H 39 H Blood Pressure 109/64 119/67 106/57 O2 Sat by Pulse Oximetry 92 L 93 L 93 L 10/31/19 17:00 10/31/19 18:00 10/31/19 18:10 Temperature Pulse Rate 83 77 81 Respiratory Rate 40 H 36 H Blood Pressure 153/79 128/66 O2 Sat by Pulse Oximetry 93 L 94 L 96 10/31/19 19:00 10/31/19 20:00 10/31/19 21:00 Temperature 97.6 F Pulse Rate 93 H 88 91 H Respiratory Rate 36 H 35 H 26 H Blood Pressure 133/66 125/67 150/75 O2 Sat by Pulse Oximetry 93 L 92 L 93 L 10/31/19 22:00 10/31/19 22:11 10/31/19 23:00 Temperature Pulse Rate 79 80 76 Respiratory Rate 32 H 42 H 36 H Blood Pressure 143/77 130/71 O2 Sat by Pulse Oximetry 95 95 91 L 11/01/19 00:00 11/01/19 00:48 11/01/19 01:00 Temperature 97.8 F Pulse Rate 69 73 65 Respiratory Rate 33 H 41 H 29 H Blood Pressure 135/66 166/79 O2 Sat by Pulse Oximetry 94 L 91 L 95 11/01/19 01:01 11/01/19 02:18 11/01/19 02:34 Temperature Pulse Rate 67 76 72 Respiratory Rate 30 H 28 H 29 H Blood Pressure 166/79 103/58 89/58 O2 Sat by Pulse Oximetry 94 L 89 L 92 L 11/01/19 02:35 11/01/19 02:39 11/01/19 02:40 Temperature Pulse Rate 71 65 Respiratory Rate 25 H 41 H 22 Blood Pressure 88/52 O2 Sat by Pulse Oximetry 93 L 95 11/01/19 03:01 11/01/19 03:15 11/01/19 03:40 Temperature Pulse Rate 69 72 Respiratory Rate 28 H 14 22 Blood Pressure 168/79 O2 Sat by Pulse Oximetry 97 98 11/01/19 04:00 11/01/19 05:00 11/01/19 06:00 Temperature 98.0 F Pulse Rate 72 71 Respiratory Rate 30 H 34 H Blood Pressure 164/81 143/70 138/67 O2 Sat by Pulse Oximetry 96 88 L 11/01/19 06:35 11/01/19 07:00 11/01/19 08:00 Temperature 98.0 F Pulse Rate 88 83 80 Respiratory Rate 29 H 29 H 31 H Blood Pressure 149/75 118/64 O2 Sat by Pulse Oximetry 95 96 94 L 11/01/19 09:00 11/01/19 09:23 11/01/19 10:00 Temperature Pulse Rate 93 H 87 86 Respiratory Rate 32 H 37 H 33 H Blood Pressure 94/51 134/68 O2 Sat by Pulse Oximetry 94 L 96 97 11/01/19 11:00 11/01/19 11:56 11/01/19 12:00 Temperature 98.3 F Pulse Rate 87 84 85 Respiratory Rate 32 H 34 H 31 H Blood Pressure 124/68 149/79 O2 Sat by Pulse Oximetry 95 95 95 11/01/19 12:10 11/01/19 12:22 11/01/19 13:01 Temperature Pulse Rate 82 104 H 102 H Respiratory Rate 37 H 26 H Blood Pressure 118/66 O2 Sat by Pulse Oximetry 93 L 90 L 95 11/01/19 14:00 11/01/19 14:21 11/01/19 15:00 Temperature Pulse Rate 90 103 H 91 H Respiratory Rate 32 H 33 H 32 H Blood Pressure 126/67 88/53 O2 Sat by Pulse Oximetry 95 92 L 92 L 11/01/19 15:15 11/01/19 16:00 11/01/19 16:57 Temperature 98.0 F Pulse Rate 90 84 86 Respiratory Rate 31 H 33 H 34 H Blood Pressure 128/65 O2 Sat by Pulse Oximetry 93 L 94 L 91 L 11/01/19 17:00 11/01/19 18:00 11/01/19 18:11 Temperature Pulse Rate 83 91 H Respiratory Rate 32 H 34 H Blood Pressure 143/82 129/68 O2 Sat by Pulse Oximetry 92 L 92 L 11/01/19 18:20 11/01/19 19:00 11/01/19 20:00 Temperature 98.2 F Pulse Rate 90 97 H 86 Respiratory Rate 27 H 35 H Blood Pressure 120/62 131/71 O2 Sat by Pulse Oximetry 93 L 91 L 92 L 11/01/19 21:00 11/01/19 21:06 11/01/19 22:00 Temperature Pulse Rate 87 89 Respiratory Rate 31 H 32 H Blood Pressure 137/72 124/64 O2 Sat by Pulse Oximetry 92 L 93 L 11/01/19 23:00 11/01/19 23:37 11/02/19 00:00 Temperature Pulse Rate 90 92 H Respiratory Rate 37 H 28 H Blood Pressure 118/65 138/69 O2 Sat by Pulse Oximetry 91 L 93 L 11/02/19 00:19 11/02/19 00:30 11/02/19 01:00 Temperature 98.1 F Pulse Rate 86 85 81 Respiratory Rate 30 H 32 H Blood Pressure 142/73 O2 Sat by Pulse Oximetry 96 94 L 93 L 11/02/19 02:00 11/02/19 02:19 11/02/19 03:00 Temperature Pulse Rate 84 87 75 Respiratory Rate 34 H 33 H 33 H Blood Pressure 139/73 153/75 O2 Sat by Pulse Oximetry 92 L 89 L 89 L 11/02/19 04:00 11/02/19 04:11 11/02/19 04:13 Temperature 98.0 F Pulse Rate 79 81 83 Respiratory Rate 32 H 31 H 38 H Blood Pressure 162/85 O2 Sat by Pulse Oximetry 93 L 93 L 92 L 11/02/19 05:00 11/02/19 05:46 11/02/19 05:56 Temperature Pulse Rate 84 85 81 Respiratory Rate 30 H 35 H Blood Pressure 120/71 O2 Sat by Pulse Oximetry 87 L 97 93 L 11/02/19 06:00 11/02/19 06:32 11/02/19 07:00 Temperature Pulse Rate 97 H 88 94 H Respiratory Rate 31 H 29 H 30 H Blood Pressure 151/74 157/82 O2 Sat by Pulse Oximetry 95 85 L 95 11/02/19 07:41 11/02/19 08:00 11/02/19 09:00 Temperature 98.1 F Pulse Rate 77 83 95 H Respiratory Rate 26 H 29 H 22 Blood Pressure 126/76 90/54 O2 Sat by Pulse Oximetry 97 94 L 96 11/02/19 09:20 11/02/19 09:39 11/02/19 10:00 Temperature Pulse Rate 92 H 96 H 80 Respiratory Rate 26 H 25 H 27 H Blood Pressure 92/53 134/73 O2 Sat by Pulse Oximetry 99 100 11/02/19 10:22 11/02/19 11:00 11/02/19 11:17 Temperature Pulse Rate 95 H 91 H 85 Respiratory Rate 30 H 27 H Blood Pressure 145/76 O2 Sat by Pulse Oximetry 95 91 L 90 L 11/02/19 12:00 11/02/19 13:00 11/02/19 13:14 Temperature 98.4 F Pulse Rate 82 76 76 Respiratory Rate 33 H 29 H 29 H Blood Pressure 165/87 138/75 O2 Sat by Pulse Oximetry 89 L 100 100 11/02/19 13:54 11/02/19 14:25 11/02/19 14:27 Temperature Pulse Rate 83 85 84 Respiratory Rate 30 H 30 H 19 Blood Pressure O2 Sat by Pulse Oximetry 93 L 91 L 90 L 11/02/19 16:32 11/02/19 19:01 11/02/19 19:02 Temperature 97.8 F Pulse Rate 75 91 H 89 Respiratory Rate 31 H 34 H 27 H Blood Pressure 127/66 129/59 O2 Sat by Pulse Oximetry 93 L 89 L 89 L 11/02/19 19:04 11/02/19 19:13 11/02/19 19:59 Temperature Pulse Rate 97 H 92 H 90 Respiratory Rate 28 H 24 24 Blood Pressure 114/65 114/65 O2 Sat by Pulse Oximetry 89 L 91 L 90 L 11/02/19 20:25 11/02/19 21:00 11/02/19 22:00 Temperature 98.7 F Pulse Rate 77 87 85 Respiratory Rate 29 H 29 H Blood Pressure 168/97 168/98 O2 Sat by Pulse Oximetry 95 99 96 11/02/19 23:00 11/03/19 00:00 11/03/19 00:38 Temperature 98.8 F Pulse Rate 77 75 79 Respiratory Rate 24 28 H Blood Pressure 142/83 155/71 O2 Sat by Pulse Oximetry 95 95 95 11/03/19 01:00 11/03/19 02:00 11/03/19 03:00 Temperature Pulse Rate 80 80 80 Respiratory Rate 26 H 27 H 24 Blood Pressure 122/68 111/59 124/72 O2 Sat by Pulse Oximetry 94 L 94 L 96 11/03/19 04:00 11/03/19 05:00 11/03/19 06:00 Temperature 98.4 F Pulse Rate 78 77 85 Respiratory Rate 24 23 27 H Blood Pressure 142/85 146/86 132/74 O2 Sat by Pulse Oximetry 97 96 100 11/03/19 06:40 Temperature Pulse Rate 71 Respiratory Rate Blood Pressure O2 Sat by Pulse Oximetry 93 L Labs: Laboratory Last Values WBC 7.6 X10^3/uL (3.6-10.0) 11/03/19 04:44 RBC 3.91 X10^6/uL (4.7-6.0) L 11/03/19 04:44 Hgb 11.2 g/dL (13.5-18.0) L 11/03/19 04:44 Hct 33.4 % (42.0-54.0) L 11/03/19 04:44 MCV 85.4 fL (80.0-100.0) 11/03/19 04:44 MCH 28.7 pg (27.0-34.0) 11/03/19 04:44 MCHC 33.6 g/dL (33.0-35.0) 11/03/19 04:44 RDW 13.9 % (11.6-16.5) 11/03/19 04:44 Plt Count 575 X10^3/uL (150.0-450.0) H 11/03/19 04:44 Plt Count Comment Adequate (ADEQUATE) 10/28/19 04:45 MPV 8.2 fL (7.4-11.0) 11/03/19 04:44 Neut % (Auto) 70.8 % (42.0-75.0) 11/03/19 04:44 Lymph % (Auto) 18.3 % (21.0-51.0) L 11/03/19 04:44 [place] % (Auto) 9.5 % (0.0-13.0) 11/03/19 04:44 Eos % (Auto) 1.0 % (0.9-2.9) 11/03/19 04:44 Baso % (Auto) 0.4 % (0.2-1.0) 11/03/19 04:44 Neut # (Auto) 5.4 x10^3/uL (2.2-4.8) H 11/03/19 04:44 Lymph # (Auto) 1.4 X10^3/uL (1.3-2.9) 11/03/19 04:44 [place] # (Auto) 0.7 x10^3/uL (0.3-0.8) 11/03/19 04:44 Eos # (Auto) 0.1 x10^3/uL (0.0-0.2) 11/03/19 04:44 Baso # (Auto) 0.0 X10^3/uL (0.0-0.1) 11/03/19 04:44 Absolute Nucleated RBC 0.1 /100WBC 11/03/19 04:44 Total Counted 100 10/28/19 04:45 Neutrophils % (Manual) 82 % (39-76) H 10/28/19 04:45 Band Neutrophils % 3 % (0-10) 10/28/19 04:45 Lymphocytes % (Manual) 10 % (13-43) L 10/28/19 04:45 Monocytes % (Manual) 4 % (4-9) 10/28/19 04:45 Eosinophils % (Manual) 1 % (0-6) 10/28/19 04:45 Plt Morphology Comment Normal (NORMAL) 10/28/19 04:45 RBC Morphology Normal (NORMAL) 10/28/19 04:45 Sample Site Lr 10/31/19 04:50 ABG pH 7.440 (7.35-7.45) 10/31/19 04:50 ABG pCO2 44.0 mmHg (35.0-45.0) 10/31/19 04:50 ABG pO2 69.0 mmHg (80.0-100.0) L 10/31/19 04:50 ABG HCO3 29.9 mmol/L (22-26) H 10/31/19 04:50 ABG O2 Saturation 94.0 % (90-100) 10/31/19 04:50 ABG Base Excess 5.1 mmol/L (-2.0-2.0) H 10/31/19 04:50 Titi Test Pos 10/31/19 04:50 A-a Gradient 261.0 mmHg 10/31/19 04:50 FiO2 54.0 10/31/19 04:50 Blood Gas Comments Flakita well ae 10/31/19 04:50 Sodium 130 mmol/L (136-145) L 11/03/19 04:44 Corrected Sodium 135 mmol/L (136-145) L 11/03/19 04:44 Potassium 3.8 mmol/L (3.5-5.1) 11/03/19 04:44 Chloride 96 mmol/L (98-107) L 11/03/19 04:44 Carbon Dioxide 30.1 mmol/L (21-32) 11/03/19 04:44 BUN 15 mg/dL (7-18) 11/03/19 04:44 Creatinine 0.84 mg/dL (0.70-1.30) 11/03/19 04:44 Est GFR (MDRD) Af Amer > 60 (>60) 11/03/19 04:44 Est GFR (MDRD) Non-Af > 60 (>60) 11/03/19 04:44 Glucose 314 mg/dL (65-99) H 11/03/19 04:44 POC Glucose (mg/dL) 370 mg/dL (65-99) H 11/01/19 16:23 Calcium 8.5 mg/dL (8.5-10.1) 11/03/19 04:44 Corrected Calcium 10.1 mg/dL (8.5-10.1) 11/02/19 04:49 Total Bilirubin 0.30 mg/dL (0.2-1.0) 11/02/19 04:49 AST 59 Units/L (15-37) H 11/02/19 04:49 ALT 87 Units/L (12-78) H 11/02/19 04:49 Alkaline Phosphatase 155 Units/L (46-116) H 11/02/19 04:49 C-Reactive Protein 97.80 mg/L (0-3.0) H 11/01/19 04:07 Total Protein 7.1 g/dL (6.4-8.2) 11/02/19 04:49 Albumin 2.2 g/dL (3.4-5.0) L 11/02/19 04:49 Globulin 4.9 g/dL (2.5-4.5) H 11/02/19 04:49 Albumin/Globulin Ratio 0.4 Ratio (1.1-2.1) L 11/02/19 04:49 Influenza Type A Ag Negative-presumptive (NEGATIVE) 10/27/19 20:23 Influenza Type B Ag Negative-presumptive (NEGATIVE) 10/27/19 20:23 Mycoplasma pneumon IgG Negative (NEGATIVE) 10/27/19 19:53 SARS-CoV-2 (PCR) Positive (NEGATIVE) A 10/27/19 22:45 Miscellaneous Test Cancelled 10/27/19 19:05 Reason For Visit: MULTIFOCAL PNEUMONIA; COVID SUSPECT; DIABETES Discharge Date Discharge Date: 11/03/19 Discharge Diagnosis All Active Problems (Updated 10/30/19 @ 11:07 by Sheyla Mallory) Elevated liver enzymes (Acute) Acute respiratory failure (Acute) Pneumonia due to COVID-19 virus (Acute) Multifocal pneumonia (Acute) COVID-19 virus IgG antibody test result unknown (Acute) Hyponatremia (Acute) Diabetes mellitus, type 2 (Chronic) Back pain (Chronic) Plan of Treatment: Continue with present treatment and follow up plan. Pt is to keep follow up appointment as instructed and take medications as ordered. Discharge Medications Discharge Medications: No Known Drug Allergies Allergy (Verified 10/27/19 18:43) CONTINUE taking the following medications aspirin 81 mg PO DAILY 10/27/19 [History] glipizide 20 mg PO BID 10/27/19 [History] metformin 850 mg PO TID 10/27/19 [History] New Prescriptions benzonatate 100 mg PO TID PRN 10 Days #30 cap 10/30/19 [Rx] codeine-guaifenesin 5 ml PO QID PRN 30 Days #300 ml 10/30/19 [Rx] famotidine 20 mg PO BID PRN 30 Days #60 tab 11/03/19 [Rx] Discharge Disposition Discharge Disposition: Home Discharge Condition: Stable
[2019-11-03] MEDS: PEPCID TAB 20 MG PO SCH (08:47)
[2019-11-03] MEDS: VITAMIN C PO SCH (08:47)
[2019-11-03] MEDS: ASPIRIN 81 MG CHEWTAB PO SCH (08:47)
[2019-11-03] MEDS: LOVENOX INJ 40 MG SYR SC SCH (08:48)
[2019-11-03] MEDS: REMDESIVIR (INVESTIGATIONAL DRUG GS-5734) 100 MG in NS 250 ML IV 250 ML IV SCH (08:49)
[2019-11-03 12:23] VITALS: BP 103/65
== END 2019-11-03 13:30 | disposition home or self-care (01) | DRG 177 ==
LOC: ER 18:24 → ICU 22:57
PROVIDERS: ADMIT Internal Medicine; ATTEND Internal Medicine
DX: E11.9 Type 2 diabetes mellitus without complications; E86.0 Dehydration; E87.1 Hypo-osmolality and hyponatremia; J96.01 Acute respiratory failure with hypoxia; M54.9 Dorsalgia, unspecified; R79.89 Other specified abnormal findings of blood chemistry; U07.1 COVID-19; J12.89 Other viral pneumonia
CPT/HCPCS: 36415; 36600; 71010; 71045; 80048; 80053; 82803; 85025; 86140; 86738; 87400; 87635; 87804; 94640; 96365; 96367; 96374; 96375; 99285; A4222; J0456; J0696; J1650; J1815; J2405; J3490; J7030; J7050; J7512; J7620